=== PATIENT | male | born 2000 | race Caucasian/White ===

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

== ENCOUNTER 2021-04-18 01:22 | Emergency (ER) | payer BC, MEDICAID, SELFPAY ==
[2021-04-18 01:24] VITALS: BP 139/76; PULSE 84; RESP 17; TEMP 36.9; O2SAT 100; BMI 28.0
[2021-04-18 01:48] VITALS: BMI 28.0
--- NOTE | 2021-04-18 01:48 | CT_ITS ---
PROCEDURE INFORMATION: Exam: CT Abdomen And Pelvis With Contrast Exam date and time: 04/18/2021 1:48 AM Age: 21 years old Clinical indication: Nausea and vomiting; Abdominal pain; Generalized; Patient HX: N/v/d for 2 days; Additional info: Abd pain TECHNIQUE: Imaging protocol: Computed tomography of the abdomen and pelvis with contrast. Radiation optimization: All CT scans at this facility use at least one of these dose optimization techniques: automated exposure control; mA and/or kV adjustment per patient size (includes targeted exams where dose is matched to clinical indication); or iterative reconstruction. Contrast material: ISOVUE; Contrast volume: 75 ml; Contrast route: IV; COMPARISON: No relevant prior studies available. FINDINGS: Lungs: The visualized lung bases are unremarkable. Liver: Unremarkable. No intrahepatic biliary dilation. Gallbladder and bile ducts: No gallbladder wall thickening. No radio-opaque stones. No common bile duct dilation. Pancreas: Unremarkable. No main pancreatic duct dilation. Spleen: Spleen is borderline enlarged measuring 12.6 cm in craniocaudal dimension. Adrenal glands: Unremarkable. Kidneys and ureters: Symmetric, homogeneous enhancement of both kidneys. No hydronephrosis. Stomach and bowel: No obstruction. No abnormal bowel wall thickening. Appendix: Appendix is gas-filled and within normal limits. Intraperitoneal space: No pneumoperitoneum. No ascites. Vasculature: No abdominal aortic aneurysm. Lymph nodes: No enlarged lymph nodes. Urinary bladder: Bladder is decompressed, limiting its evaluation. Reproductive: Unremarkable as visualized. Bones/joints: Mild lower lumbar disc bulging and facet degenerative changes. [id number] neural foraminal narrowing is present at the lower lumbar levels. There is also at least mild spinal canal stenosis at L4-L5. No acute fracture. Soft tissues: Small umbilical hernia containing fat. IMPRESSION: 1. No acute abnormality or specific etiology for abdominal pain identified. Ninety. Mild splenomegaly. 2. Borderline splenomegaly.
[2021-04-18 01:55] LABS: Microscopic, Urine URINE MICROSCOPIC (MICROSCOPIC)
[2021-04-18 01:58] LABS: Appearance,Urine CLEAR (Clear); Bilirubin,Urine Negative (Negative); Blood, Urine Negative (Negative); Color,Urine YELLOW (Yellow); Glucose,Urine (UA) Negative (Negative); Ketones,Urine Negative (Negative); Leukocyte Esterase,Urine Negative (Negative); Nitrate,Urine Negative (Negative); Protein,Urine Negative (Negative); Specific Gravity, Urine 1.025 (1.005-1.030); Urobilinogen,Urine 0.2 EU/dl (0.2)
[2021-04-18 02:00] LABS: Basophils # 0.1 K/mm3 (0-0.2); Basophils % 1.1 % (0.1-2.0); Eosinophils # 0.1 K/mm3 (0.0-0.4); Eosinophils % 1.1 % (0.1-12.0); Hematocrit 53.7 % (42.0-52.0); Hemoglobin 17.9 g/dL (14.1-18.0); Lymphocytes # 1.5 K/mm3 (0.7-4.5); Mean Corpuscular HGB Conc 33.3 g/dL (31.8-35.4); Mean Corpuscular Hemoglobin 30.3 pg (27.0-31.2); Mean Platelet Volume 7.8 fl (7.4-10.4); Monocytes # 0.6 K/mm3 (0.1-1.0); Monocytes % 7.6 % (1.7-9.3); Neutrophils # 5.6 K/mm3 (1.8-7.8); Neutrophils % 71.2 % (37.0-80.0); Platelet Count 242 K/mm3 (142-424); Red Cell Distribution Width 13.1 % (11.5-17.5); White Blood Count 7.9 K/mm3 (4.5-13.0)
[2021-04-18 02:06] LABS: Alanine Aminotransferase 36 U/L (12-78); Albumin Level 4.5 g/dl (3.5-5.0); Albumin/Globulin Ratio 1.4 (1.1-1.8); Alkaline Phosphatase 98 U/L (38-126); Amylase 80 U/L (30-110); Anion Gap 15.8 mEq/L (5-15); Aspartate Amino Transferase 80 U/L (17-59); Bilirubin,Total 0.9 mg/dl (0.2-1.3); Blood Urea Nitrogen 13 mg/dl (9-20); Calcium 9.3 mg/dl (8.4-10.2); Carbon Dioxide 26 mmol/L (22.0-30.0); Chloride 104 mmol/L (98-107); Creatinine Clearance Estimated 160 mL/min (50-200); Estimated Glomerular Filt Rate 108 ml/min (>60); GFR (African American) 130 ML/MIN (>60); Globulin 3.3 g/dL (1.3-3.2); Glucose 101 mg/dl (74-100); Lipase 65 U/L (23-300); Potassium 3.8 mmoL/L (3.5-5.1); Sodium 142 mmol/L (136-145); Total Protein,Serum 7.8 g/dl (6.3-8.2)
--- NOTE | 2021-04-18 02:09 | HMH.EDNVD ---
ED Disposition Clinical Impression: Gastroenteritis Disposition: Home, Self-Care Condition on Discharge: Good Instructions: DI for Acute Abdominal Pain Additional Instructions: fluids and see pcp for follow up Referrals: Cullen Bravo [Primary Care Provider] - - Critical Care Critical Care Time: No Attestation: On 04/18/21, the high probability of a clinically significant, sudden or life threatening deterioration of the following system(s) required my full and direct attention, intervention and personal management. The time I documented below is in addition to time spent performing reported procedures but includes the following listed in this critical care notation. Medical Decision Making - Medical Records Medical records reviewed: Yes: I reviewed the patient's medical records. - Prakash Inquiry Pt receiving controlled substance: No Vital Signs: 04/18/21 01:24 Temperature 98.4 F Temperature Source Oral Pulse Rate [Right] 84 Respiratory Rate 17 Blood Pressure [Right Arm] 139/76 Blood Pressure Mean [Right Arm] 97 Blood Pressure Source [Right Arm] Automatic Cuff 02 Sat by Pulse Oximetry 100 Oxygen Delivery Method Room Air - Lab Data Lab results reviewed: Yes: I reviewed the patient's lab results. Lab Results 04/18/21 01:25: Urine Color Yellow, Urine Appearance Clear, Urine pH 6.0, Ur Specific [place] 1.025, Urine Protein Negative, Urine Glucose (UA) Negative, Urine Ketones Negative, Urine Blood Negative, Urine Nitrate Negative, Urine Bilirubin Negative, Urine Urobilinogen 0.2, Ur Leukocyte Esterase Negative, Urine WBC 3-5, Ur Squamous Epith Cells Occasional, Urine Bacteria 1+, Urine Mucus 1+ 04/18/21 01:40: WBC 7.9, RBC 5.90, Hgb 17.9, Hct 53.7 H, MCV 91.0, MCH 30.3, MCHC 33.3, RDW 13.1, Plt Count 242, MPV 7.8, Neut % (Auto) 71.2, Lymph % (Auto) 19.0, [place] % (Auto) 7.6, Eos % (Auto) 1.1, Baso % (Auto) 1.1, Neut # (Auto) 5.6, Lymph # (Auto) 1.5, [place] # (Auto) 0.6, Eos # (Auto) 0.1, Baso # (Auto) 0.1, ESR 4 04/18/21 01:40: Sodium 142, Potassium 3.8, Chloride 104, Carbon Dioxide 26, Anion Gap 15.8 H, BUN 13, Creatinine 0.90, Estimated Creat Clear 160, Estimated GFR 108, Est GFR ( Amer) 130, Glucose 101 H, Calcium 9.3, Total Bilirubin 0.9, AST 80 H, ALT 36, Alkaline Phosphatase 98, C-Reactive Protein 10.1 H, Total Protein 7.8, Albumin 4.5, Globulin 3.3 H, Albumin/Globulin Ratio 1.4, Amylase 80, Procalcitonin 0.168 04/18/21 01:40: Lipase 65 04/18/21 01:40: Lactate 0.7 Result diagrams: 04/18/21 01:40 04/18/21 01:40 Orders (Tests/Meds): ED MEDICATIONS Generic Name Dose Route Start Last Admin Trade Name Freq PRN Reason Stop Dose Admin Sodium Chloride 1,000 mls @ 999 mls/hr 04/18/21 02:00 04/18/21 02:06 Sod Chlor 0.9% 1000ml Bag IV 04/18/21 03:00 999 mls/hr .Q1H1M LILIAM Administration Sodium Chloride 8 ml 04/18/21 01:52 Sodium Chloride 0.9% 10ml Vial IV 05/18/21 01:51 NEEDED PRN dilute pepcid Discontinued Medications Generic Name Dose Route Start Last Admin Trade Name Freq PRN Reason Stop Dose Admin Diphenhydramine HCl 50 mg 04/18/21 03:02 04/18/21 03:10 Diphenhydramine 50mg/Ml Vial IV 04/18/21 03:03 50 mg ONCE ONE Administration Famotidine 20 mg 04/18/21 01:52 04/18/21 02:05 Famotidine 20mg/2ml Vial IV 04/18/21 01:53 20 mg ONCE ONE Administration Iopamidol 75 ml 04/18/21 02:12 04/18/21 02:12 Iopamidol-370 (76%);100ml Bottle IV 04/18/21 02:13 75 ml ONCE ONE Administration Ketorolac Tromethamine 30 mg 04/18/21 01:52 04/18/21 02:05 Ketorolac 30mg/Ml Vial IV 04/18/21 01:53 30 mg ONCE ONE Administration Methylprednisolone Sodium Succinate 125 mg 04/18/21 03:02 04/18/21 03:10 Methylprednisolone Sod Succ 125mg Vial IV 04/18/21 03:03 125 mg ONCE ONE Administration Metoclopramide HCl 10 mg 04/18/21 01:52 04/18/21 02:05 Metoclopramide Hcl 10mg/2ml Vial IVP 04/18/21 01:53 10 mg ONCE ONE Administration
[2021-04-18 02:11] LABS: C-Reactive Protein 10.1 mg/L (0-4)
[2021-04-18 02:14] LABS: Bacteria,Urine 1+ /lpf; Mucus,Urine 1+ /lpf; Squamous Epithelial Cell,Urine Occasional #/hpf (0-5)
--- NOTE | 2021-04-18 02:18 | PC.NURSE ---
pt attempting to give diarrhea sample
[2021-04-18 02:25] LABS: Procalcitonin 0.168 ng/mL (0.0-2.0)
[2021-04-18 02:27] LABS: Lactic Acid 0.7 mmol/L (0.7-2.1)
[2021-04-18 02:43] LABS: Erythrocyte Sedimentation Rate 4 mm/hr (0-15)
[2021-04-18 03:56] VITALS: BP 122/70; PULSE 76; RESP 15; TEMP 36.8; O2SAT 99
== END 2021-04-18 04:00 | disposition home or self-care (01) ==
PROVIDERS: Emergency Provider Emergency Medicine; PCP Internal Medicine
DX: K52.9 Noninfective gastroenteritis and colitis, unspecified (principal)
CPT/HCPCS: 74177; 80053; 81001; 82150; 83605; 83690; 84145; 85025; 85651; 86140; 96365; 96366; 96375; 99283; J2405; Q9967

== ENCOUNTER 2021-06-14 00:18 | Emergency (ER) | payer BC, MEDICAID, SELFPAY ==
[2021-06-14 00:19] VITALS: BP 115/81; PULSE 90; RESP 16; TEMP 36.8; O2SAT 98; BMI 28.8
--- NOTE | 2021-06-14 00:31 | XR_ITS ---
PROCEDURE INFORMATION: Exam: XR Right Tibia and Fibula Exam date and time: 06/14/2021 12:31 AM Age: 21 years old Clinical indication: Lower leg; Patient HX: PT states he slid across the floor and hit a door frame tonight. C/O distal right tib/fib pain; Additional info: Injury TECHNIQUE: Imaging protocol: XR Right tibia and fibula. Views: 2 views. COMPARISON: No relevant prior studies available. FINDINGS: Bones/joints: No acute displaced fracture. No dislocation. Soft tissues: Normal. IMPRESSION: No acute findings.
--- NOTE | 2021-06-14 02:06 | HMH.EDLOEX ---
ED Disposition Clinical Impression: Contusion of lower leg Qualifiers: Encounter type: initial encounter Laterality: right Qualified Code(s): S80.11XA - Contusion of right lower leg, initial encounter Disposition: Home, Self-Care Condition on Discharge: Good Instructions: DI for Leg Pain Additional Instructions: ice and advil/tyenol and see pcp for follow up Referrals: Cullen Bravo [Primary Care Provider] - - Critical Care Critical Care Time: No Attestation: On 06/14/21, the high probability of a clinically significant, sudden or life threatening deterioration of the following system(s) required my full and direct attention, intervention and personal management. The time I documented below is in addition to time spent performing reported procedures but includes the following listed in this critical care notation. Medical Decision Making - Medical Records Medical records reviewed: Yes: I reviewed the patient's medical records. - Prakash Inquiry Pt receiving controlled substance: No Vital Signs: 06/14/21 00:19 Temperature 98.2 F Temperature Source Oral Pulse Rate [Right Radial] 90 Respiratory Rate 16 Blood Pressure [Left Arm] 115/81 Blood Pressure Mean [Left Arm] 92 Blood Pressure Source [Left Arm] Automatic Cuff Blood Pressure Position [Left Arm] Sitting 02 Sat by Pulse Oximetry 98 Oxygen Delivery Method Room Air Orders (Tests/Meds): ED MEDICATIONS Discontinued Medications Generic Name Dose Route Start Last Admin Trade Name Freq PRN Reason Stop Dose Admin Acetaminophen 1,000 mg 06/14/21 00:32 06/14/21 00:34 Acetaminophen 500mg Tab PO 06/14/21 00:33 1,000 mg ONCE ONE Administration Ibuprofen 600 mg 06/14/21 00:32 06/14/21 00:34 Ibuprofen 600 Mg Tablet PO 06/14/21 00:33 600 mg ONCE ONE Administration - Radiology Data #1 Image(s): Tib/Fib Image Reviewed: Yes I have reviewed radiologist's interpretation Preliminary Findings: No Fracture Seen Medical Decision Narrative: has tenderness but neg xrays and has no clinical evid of compartment syndrome Lower Extremity Injury HPI - General Chief Complaint: Extremity Injury, Lower Stated Complaint: AO 06/14/21 0015 Right leg injury Time Seen by Provider: 06/14/21 01:00 Mode of Arrival: Wheelchair Source of Information: Patient, Medical Record Limitations: No Limitations Description of Symptoms (Recalled from ER Triage Doc. by RN): Pt reports sliding into a door frame and injuring his right louis. He says he was able to bear weight on it after the injury but it has gotten worse. No obvious deformity present. + distal pulse with good cap refill. - History of Present Illness HPI Narrative: acute injury rt lower leg MD complaint: leg injury Onset (ago): hour(s) Type of Injury: blunt Place: home Severity: moderate - Related Data Home Medications Medication Instructions Recorded Confirmed No Known Home Medications 06/14/21 06/14/21 Allergies Allergy/AdvReac Type Severity Reaction Status Date / Time azithromycin Allergy Rash Verified 04/18/21 02:18 ceftibuten [From Cedax] Allergy Rash Verified 04/18/21 02:18 [facility] History - Hepatitis A Screen Drug use history?: No High risk sexual behaviors?: No History of sexually transmitted infection?: No Currently employed?: No Childcare worker?: No Do you have indoor plumbing?: Yes Do you have electricity?: Yes Attestation statement:: This patient has been screened for Hepatitis A risk factors. I have reviewed the patient's past medical history: Yes Medical History: Denies:: Cancer, Diabetes Mellitus Type 1, Diabetes Mellitus Type 2, MRSA Laterality Cases: Bilateral: Tonsillectomy Amputation: No Fractures: No - Social History Smoking Status: Never smoker Alcohol Intake: never Occupational Status: other ROS Obtained: Yes All systems reviewed & no additional complaints - Constitutional Constitutional: Denies fever(s) - Eyes
[2021-06-14 02:16] VITALS: BP 124/63; PULSE 78; RESP 16; TEMP 36.6; O2SAT 98
== END 2021-06-14 02:27 | disposition home or self-care (01) ==
PROVIDERS: Emergency Provider Emergency Medicine; PCP Internal Medicine
DX: S80.11XA Contusion of right lower leg, initial encounter (principal); W01.0XXA Fall on same level from slipping, tripping and stumbling without subsequent striking against object, initial encounter; Y92.89 Other specified places as the place of occurrence of the external cause
CPT/HCPCS: 73590; 99282

== ENCOUNTER 2022-04-26 18:30 | Emergency (ER) | payer BC, MEDICAID, SELFPAY ==
[2022-04-26 19:26] VITALS: BP 135/84; PULSE 99; RESP 16; TEMP 38.8; O2SAT 97; BMI 33.2
--- NOTE | 2022-04-26 19:30 | EXP.UTC ---
Discharge Plan Disposition Patient Disposition: Home, Self-Care Condition: Good Prescriptions Prescriptions: New oseltamivir [Tamiflu] 75 mg capsule 75 mg PO BID Qty: 10 0RF Referrals Follow up/Referrals: Cullen Bravo [Primary Care Provider] - See instructions Activity Restrictions/Add. Instructions Additional Instructions/Restrictions: Rest, fluids, Tylenol/Motrin as needed Clinical Impressions Clinical Impression: Influenza A Instructions Patient Instructions: DI for Influenza -- Adult Discharge ED Provider: Tashia Buchanan [facility] [place] HPI General Stated complaint: cough, congestion, body aches, weakness, h/a Mode of Arrival: Ambulatory Source of Information: Patient Limitations: No Limitations Time Seen by Provider: 04/26/22 19:36 Description of Symptoms (Recalled from Triage Doc. by RN): pt comes in with c/o cough, congestion, fatigue, cough, weakness, body aches. symptoms began 2 days HEENT Symptoms (Recalled from RN notes): Yes Resp Symptoms (Recalled from RN notes): Yes Skin Symptoms (Recalled from RN notes): No MS Symptoms (Recalled from RN notes): No Functional Status (Recalled from RN notes): n/a History of Present Illness Provider Complaint: Cough, congestion, headache, sore throat, body aches, chills since last night. Onset (ago): day(s) (1) Relieving factors: none Exacerbating factors: none Associated symptoms: cough, fever/chills and headaches Treatments prior to arrival: NSAID Related Data Previous Rx's Medication Instructions Recorded oseltamivir 75 mg capsule (Tamiflu) 75 mg PO BID #10 caps 04/26/22 Allergies Allergy/AdvReac Type Severity Reaction Status Date / Time azithromycin Allergy Rash Verified 04/26/22 19:28 ceftibuten [From Cedax] Allergy Rash Verified 04/26/22 19:28 Worker's Comp Is this a Worker's Comp case?: No [facility] Social History Smoking Status: Never smoker alcohol intake: never current occupational status: other Travel in the last 8 weeks: None ROS Obtained: Yes All systems reviewed & no additional complaints except as documented Constitutional Constitutional: Reports body ache, Reports chills, Reports fatigue, Reports fever(s) and Reports headache(s) ENT Ears, Nose, Mouth, and Throat: Reports headache(s) and Reports sore throat Respiratory Respiratory: Reports cough Neurologic Neurologic: Reports headache(s) Endocrine Endocrine: Reports fatigue Physical Exam General General appearance: alert and in no apparent distress Head Head exam: atraumatic, normocephalic and normal inspection Eye Eye exam: Present normal appearance, PERRL and EOMI ENT ENT exam: Present normal exam, normal oropharynx, mucous membranes moist, TM's normal bilaterally and normal external ear exam Neck Neck exam: Present normal inspection, full ROM and trachea midline; Absent meningismus or lymphadenopathy Chest Chest inspection: Present normal inspection and symmetric chest wall rise; Absent tenderness Respiratory Respiratory exam: Present normal lung sounds bilaterally; Absent respiratory distress Cardiovascular Cardiovascular exam: Present regular rate and normal rhythm; Absent JVD Abdominal Exam Abdominal exam: Present soft and normal bowel sounds; Absent distention, tenderness or guarding Extremities Exam Extremities exam: Present normal inspection, full ROM and normal capillary refill; Absent calf tenderness Back Exam Back exam: Present normal inspection; Absent tenderness Neurological Exam Neurological exam: Present alert and oriented X3 Psychiatric Psychiatric exam: Present normal affect and normal mood Skin Skin exam: Present warm, dry, intact and normal color Lymphatic Lymphatic Findings: no adenopathy Medical Decision Making Prakash Inquiry Pt receiving controlled substance: No Vital Signs: 04/26/22 19:26 Temperature 101.9 F H Temperature Source Oral Pulse Rate [Left Radial] 99 H Resp
[2022-04-26 19:33] LABS: UTC Influenza A Antigen Positive (Negative); UTC Influenza B Antigen Negative (Negative)
[2022-04-26 19:42] VITALS: BP 135/84; PULSE 90; RESP 16; TEMP 37.6
== END 2022-04-26 19:47 | disposition home or self-care (01) ==
PROVIDERS: Emergency Provider Physician Assistant; PCP Internal Medicine
DX: J10.1 Influenza due to other identified influenza virus with other respiratory manifestations (principal)
CPT/HCPCS: 87804; 99212; G0463

== ENCOUNTER 2022-06-23 04:28 | Emergency (ER) | payer MEDICAID, SELFPAY ==
[2022-06-23 04:30] VITALS: BP 117/58; PULSE 96; RESP 18; TEMP 37.3; O2SAT 98; BMI 33.6
[2022-06-23 05:21] LABS: Coronavirus 19, PCR Not Detected (NotDetected); Influenza A, PCR Not Detected (NotDetected); Influenza B, PCR Not Detected (NotDetected)
--- NOTE | 2022-06-23 05:28 | HMH.EDGENADL ---
Discharge Plan Disposition Patient Disposition: Home, Self-Care Condition: Good Chief Complaint: Nausea/Vomiting/Diarrhea Prescriptions Prescriptions: No Action oseltamivir [Tamiflu] 75 mg capsule 75 mg PO BID Qty: 10 0RF Referrals Follow up/Referrals: Cullen Bravo [Primary Care Provider] - See instructions Clinical Impressions Clinical Impression: Gastroenteritis Instructions Patient Instructions: DI for Diarrhea and Traveler's Diarrhea -- Adult, DI for Nausea -- Adult Discharge ED Provider: Dudley Cox Adult HPI General Chief complaint: Nausea/Vomiting/Diarrhea Stated complaint: V/D,weakness Time Seen by Provider: 06/23/22 04:33 Mode of Arrival: Wheelchair Source of Information: Patient Limitations: No Limitations Description of Symptoms (Recalled from ER Triage Doc. by RN): pt C/O N/V/D pt states he started throwing up and having diarrhea at 1230 a and that he is weak and dehyrated. no pain reported the pt stated that the flu, covid and the stomach bug are going around him place of employment History of Present Illness HPI narrative: 22yo M without significant past medical history presents to the emergency department secondary to nausea with vomiting and diarrhea that began shortly after midnight. Reports multiple sick contacts at work with flu, COVID, a stomach bug. No fever. Intolerant to p.o. intake. Related Data Previous Rx's Medication Instructions Recorded oseltamivir 75 mg capsule (Tamiflu) 75 mg PO BID #10 caps 04/26/22 Allergies Allergy/AdvReac Type Severity Reaction Status Date / Time azithromycin Allergy Rash Verified 04/26/22 19:28 ceftibuten [From Cedax] Allergy Rash Verified 04/26/22 19:28 [facility] Disclaimer: The information contained in this section may have been updated after the patient was seen, as this information can be updated by other users. Social History Smoking Status: Never smoker alcohol intake: never current occupational status: other Travel in the last 8 weeks: None ROS Obtained: Yes Systems reviewed as appropriate & no additional complaints except as documented Physical Exam General General appearance: alert and in no apparent distress Head Head exam: atraumatic Neck Neck exam: Present normal inspection and trachea midline Chest Chest inspection: Present normal inspection and symmetric chest wall rise Respiratory Respiratory exam: Present normal lung sounds bilaterally; Absent respiratory distress or accessory muscle use Cardiovascular Cardiovascular exam: Present regular rate, normal rhythm and normal heart sounds Abdominal Exam Abdominal exam: Present soft and normal bowel sounds; Absent distention, tenderness, guarding or rebound Neurological Exam Neurological exam: Present alert, oriented X3 and CN II-XII intact Psychiatric Psychiatric exam: Present normal affect and normal mood Skin Skin exam: Present warm, dry and intact Medical Decision Making Medical Records Medical records reviewed: Yes I reviewed the patient's medical records. Prakash Inquiry Pt receiving controlled substance: No Prakash was queried for this patient: No Vital Signs: 06/23/22 04:30 Temperature 99.1 F Temperature Source Oral Pulse Rate [Left] 96 H Respiratory Rate 18 Blood Pressure [Right Arm] 117/58 L Blood Pressure Mean [Right Arm] 77 02 Sat by Pulse Oximetry 98 Oxygen Delivery Method Room Air Lab Data Lab results reviewed: Yes I reviewed the patient's lab results. Lab Results 06/23/22 05:13: SARS-CoV-2 (PCR) Not detected, Influenza A Untype (PCR) Not detected, Influenza Type B (PCR) Not detected 06/23/22 06:15: WBC 10.8, RBC 5.10, Hgb 15.1, Hct 45.2, MCV 88.5, MCH 29.6, MCHC 33.5, RDW 13.1, Plt Count 249, MPV 7.6, Neut % (Auto) 92.2 H, Lymph % (Auto) 3.0 L, [place] % (Auto) 3.7, Eos % (Auto) 0.8, Baso % (Auto) 0.4, Neut # (Auto) 10.0 H, Lymph # (Auto) 0.3 L, [place] # (Auto) 0.4, Eos #
[2022-06-23 06:21] LABS: Basophils % 0.4 % (0.1-2.0); Eosinophils # 0.1 K/mm3 (0.0-0.4); Eosinophils % 0.8 % (0.1-12.0); Hematocrit 45.2 % (42.0-52.0); Hemoglobin 15.1 g/dL (14.1-18.0); Lymphocytes # 0.3 K/mm3 (0.7-4.5); Mean Corpuscular HGB Conc 33.5 g/dL (31.8-35.4); Mean Corpuscular Hemoglobin 29.6 pg (27.0-31.2); Mean Corpuscular Volume 88.5 fl (80-94); Mean Platelet Volume 7.6 fl (7.4-10.4); Monocytes # 0.4 K/mm3 (0.1-1.0); Monocytes % 3.7 % (1.7-9.3); Neutrophils % 92.2 % (37.0-80.0); Platelet Count 249 K/mm3 (142-424); Red Cell Distribution Width 13.1 % (11.5-17.5); White Blood Count 10.8 K/mm3 (4.8-10.8)
[2022-06-23 06:23] LABS: MANUAL DIFFERENTIAL MANUAL DIFFERENTIAL (MANUAL DIFF)
[2022-06-23 06:30] LABS: Anion Gap 12.8 mEq/L (5-15); Blood Urea Nitrogen 21 mg/dl (9-20); Calcium 8.4 mg/dl (8.4-10.2); Carbon Dioxide 25 mmol/L (22.0-30.0); Chloride 107 mmol/L (98-107); Creatinine Clearance Estimated 147 mL/min (50-200); Estimated Glomerular Filt Rate 85 ml/min (>60); GFR (African American) 102 ML/MIN (>60); Glucose 154 mg/dl (74-100); Lipase 47 U/L (23-300); Lymphocytes % 5 % (10-50); Neutrophils % 83 % (42-76); Platelet Estimate Normal; Potassium 3.8 mmoL/L (3.5-5.1); RBC Morphology Normal; Sodium 141 mmol/L (136-145); Total Cells Counted 100
[2022-06-23 06:55] VITALS: BP 107/56; PULSE 89; RESP 16; TEMP 36.8; O2SAT 98
== END 2022-06-23 07:00 | disposition home or self-care (01) ==
PROVIDERS: Emergency Provider Family Medicine; PCP Internal Medicine
DX: R53.1 Weakness (principal); K52.9 Noninfective gastroenteritis and colitis, unspecified; Z20.822 Contact with and (suspected) exposure to COVID-19
CPT/HCPCS: 80048; 83690; 85007; 85025; 96361; 96374; 96375; 99285; C9803; U0003; U0005

== ENCOUNTER 2022-07-02 08:37 | Emergency (ER) | payer MEDICAID, SELFPAY ==
[2022-07-02 08:38] VITALS: BP 132/82; PULSE 103; RESP 19; TEMP 37.7; O2SAT 97; BMI 32.8
--- NOTE | 2022-07-02 09:02 | EXP.UTC ---
Discharge Plan Disposition Patient Disposition: Home, Self-Care Condition: Good Prescriptions Prescriptions: New lxdyhyhihquaxjd-kqnucwwew-YC [Bromfed DM] 2-30-10 mg/5 mL Syrup 5 ml PO Q6H PRN (Reason: Cough) Qty: 240 0RF Referrals Follow up/Referrals: Cullen Bravo [Primary Care Provider] - See instructions Activity Restrictions/Add. Instructions Additional Instructions/Restrictions: Drink plenty of fluids. Take tylenol or ibuprofen for pain or fever. Follow up with your regular doctor. GO TO THE ER FOR ANY WORSENING SYMPTOMS Clinical Impressions Clinical Impression: Viral pharyngitis Stand Alone Forms Stand Alone Forms: Work/School Release Instructions Patient Instructions: Viral Pharyngitis, DI for Viral Pharyngitis Discharge ED Provider: Joe Buckner [facility] [place] HPI General Stated complaint: Sore throat, bodyaches, headache, drainage Time Seen by Provider: 07/02/22 09:02 History of Present Illness Provider Complaint: He states that since last night, he has had a sore throat, malaise, and chills. He states that he feels like he has strep throat. He had his tonsils out several years ago and he has not had strep throat since then. Related Data Previous Rx's Medication Instructions Recorded skefqmrkudljrrf-fjabwuavnzxytax-BL 5 ml PO Q6H PRN Cough #240 mL 07/02/22 2 mg-30 mg-10 mg/5 mL oral syrup (Bromfed DM) Allergies Allergy/AdvReac Type Severity Reaction Status Date / Time azithromycin Allergy Rash Verified 07/02/22 09:04 ceftibuten [From Cedax] Allergy Rash Verified 07/02/22 09:04 [facility] Disclaimer: The information contained in this section may have been updated after the patient was seen, as this information can be updated by other users. Social History Smoking Status: Never smoker alcohol intake: never current occupational status: other Travel in the last 8 weeks: None ROS Obtained: Yes All systems reviewed & no additional complaints except as documented Constitutional Constitutional: Reports chills and Reports fever(s) Eyes Eyes: Denies eye discharge ENT Ears, Nose, Mouth, and Throat: Reports as per HPI Cardiovascular Cardiovascular: Denies chest pain Respiratory Respiratory: Denies chest congestion and Reports cough Gastrointestinal Gastrointestingal: Reports nausea; Denies abdominal pain, constipation, cramping, diarrhea or vomiting Musculoskeletal Musculoskeletal: Denies arthralgias Integumentary/Breasts Skin/Breast: Denies rash Neurologic Neurologic: Denies paresthesias Physical Exam General General appearance: alert and in no apparent distress Head Head exam: atraumatic, normocephalic and normal inspection Eye Eye exam: Present normal appearance, PERRL and EOMI ENT ENT exam: Present mucous membranes moist and normal external ear exam Expanded ENT Exam TM/Canal exam: Bilateral TM: erythema and bulging Nose exam: Absent sinus tenderness Mouth exam: Present normal external inspection; Absent drooling Teeth exam: Present normal inspection Throat exam: Present tonsillar erythema, tonsillomegaly and tonsillar exudate Neck Neck exam: Present normal inspection, full ROM and trachea midline; Absent tenderness, meningismus or lymphadenopathy Chest Chest inspection: Present normal inspection and symmetric chest wall rise; Absent tenderness Respiratory Respiratory exam: Present normal lung sounds bilaterally; Absent respiratory distress, wheezes or stridor Cardiovascular Cardiovascular exam: Present regular rate and normal rhythm; Absent systolic murmur or diastolic murmur Abdominal Exam Abdominal exam: Present soft and normal bowel sounds; Absent distention, tenderness, guarding, rebound or rigidity Extremities Exam Extremities exam: Present normal inspection and normal capillary refill; Absent calf tenderness Back Exam Back exam: Present normal inspection and full ROM; Absent tenderness, CVA tendern
[2022-07-02 09:06] LABS: UTC Strep Screen (Rapid) Negative (Negative)
[2022-07-02 09:20] VITALS: BP 132/82; PULSE 103; RESP 19; TEMP 37.7; O2SAT 97
== END 2022-07-02 09:20 | disposition home or self-care (01) ==
PROVIDERS: Emergency Provider Nurse Practitioner Family; PCP Internal Medicine
DX: J02.9 Acute pharyngitis, unspecified (principal); R52 Pain, unspecified; R09.89 Other specified symptoms and signs involving the circulatory and respiratory systems
CPT/HCPCS: 87880; 99212; 99213; C9803; G0463; U0003; U0005

== ENCOUNTER 2024-01-20 03:48 | Emergency (ER) | payer MEDICAID, SELFPAY ==
[2024-01-20 03:55] VITALS: BP 149/105; PULSE 81; RESP 16; TEMP 36.9; O2SAT 98; BMI 34.9
--- NOTE | 2024-01-20 03:59 | ECG_ITS ---
APPROVED REPORT Exam: Resting ECG HR:73 bpm ECG Measurements Heart Rate 73 AXES VT 154 P 31 QRSd 94 QRS 20 QT 355 T 18 QTc 381 Conclusion SINUS RHYTHM WITH SINUS ARRHYTHMIA NORMAL ECG UNCONFIRMED REPORT Electronically signed by : CARLYN HESS, 01/23/2024 06:47:44
--- NOTE | 2024-01-20 04:02 | HMH.EDGENADL ---
Discharge Plan Disposition Patient Disposition: Home, Self-Care Chief Complaint: Anxiety Prescriptions Prescriptions: No Action awcezlqwhpvnzxv-awgjebimp-CP [Bromfed DM] 2-30-10 mg/5 mL Syrup 5 ml PO Q6H PRN (Reason: Cough) Qty: 240 0RF Referrals Follow up/Referrals: Provider,Referral, [Primary Care Provider] - See instructions Clinical Impressions Clinical Impression: Heart palpitations Print Language Print Language: Thai Discharge ED Provider: Valentin Del Cid General Adult HPI General Chief complaint: Anxiety Stated complaint: panic attack Time Seen by Provider: 01/20/24 03:52 Mode of Arrival: Ambulatory Source of Information: Patient Limitations: No Limitations Description of Symptoms (Recalled from ER Triage Doc. by RN): Pt ambulated to ED with cc of heart racing. Pt states I felt my heart start to race and it caused me to panic Pt states becoming nauseated and shaky. Pt states he believes it is a panic attack but wanted to be checked out just incase History of Present Illness HPI narrative: 21-year-old male with history of asthma presents for multiple episodes of tachycardia palpitations and anxiety. He reports he is not sure what happened, could be anxiety related though he has no history of anxiety panic disorder and has had nothing to cause any anxiety recently. He reports he had an episode happened yesterday lasting about 5 minutes, had an episode happened shortly prior to arrival as well. He reports that he measured his heart rate by feeling his pulse and it was higher than 120 all of a sudden while laying down. Nothing brought it on, it spontaneously resolved. Nothing like this has happened before. Denies any chest pain abdominal pain or any other symptoms at this time. Related Data Previous Rx's ?Medication ?Instructions ?Recorded ubkldwqrvahjchx-mjqhgovdofjtyqq-RK 5 ml PO Q6H PRN Cough #240 mL 07/02/22 2 mg-30 mg-10 mg/5 mL oral syrup (Bromfed DM) Allergies Allergy/AdvReac Type Severity Reaction Status Date / Time azithromycin Allergy Rash Verified 07/02/22 09:04 ceftibuten [From Cedax] Allergy Rash Verified 07/02/22 09:04 [facility] Disclaimer: The information contained in this section may have been updated after the patient was seen, as this information can be updated by other users. Social History Smoking Status: Never smoker alcohol intake: never current occupational status: other Travel in the last 8 weeks: None ROS Obtained: Yes All systems reviewed & no additional complaints except as documented Physical Exam General General appearance: alert and in no apparent distress Head Head exam: atraumatic and normocephalic Eye Eye exam: Present normal appearance, PERRL and EOMI ENT ENT exam: Present normal oropharynx and normal external ear exam Neck Neck exam: Present normal inspection and full ROM Chest Chest inspection: Present normal inspection and symmetric chest wall rise; Absent tenderness Respiratory Respiratory exam: Present normal lung sounds bilaterally; Absent respiratory distress Cardiovascular Cardiovascular exam: Present regular rate and normal rhythm Abdominal Exam Abdominal exam: Present soft; Absent distention, tenderness or guarding Extremities Exam Extremities exam: Present normal inspection; Absent edema or joint swelling Back Exam Back exam: Present normal inspection; Absent tenderness Neurological Exam Neurological exam: Present alert and oriented X3; Absent motor sensory deficit Psychiatric Psychiatric exam: Present normal affect and normal mood Skin Skin exam: Present warm, dry and normal color Lymphatic Lymphatic Findings: no adenopathy Medical Decision Making Medical Records Medical records reviewed: Yes I reviewed the patient's medical records. Prakash Inquiry Pt receiving controlled substance: No Prakash was queried for this patient: No Vital Signs: 01/20/24 03:55 Temperature 98.5 F Temperature Source Oral Pulse Rate [Left Radial] 81 Respiratory Rate 16 Blood Pressure [Right Arm] 149/105 H Blood Pressure Mean [Right Arm] 119 Blood Pressure Source [Right Arm] Automatic Cuff 02 Sat by Pulse Oximetry 98 Oxygen Delivery Method Room Air Lab Data Lab results reviewed: Yes I reviewed the patient's lab results. Orders (Tests/Meds): ORDERS Category Date Time Status Holter Monitor Req by Jean Paul/ Stat Y 01/20/24 04:01 Ordered ECG Data Tracing #1: I reviewed this ECG and interpreted as documented below: ECG initial impression date: 01/20/24 ECG initial impression time: 04:00 ECG normal with no acute: arrhythmias, ischemia, conduction abnormalities, chamber hypertrophy Normal Sinus Rhythm: Yes Medical Decision Narrative: 23-year-old male with history of asthma presents with multiple episodes of tachycardia at home over the last couple of days. History was obtained via interactive discussion with patient. On arrival, patient is [afebrile, hemodynamically stable, satting appropriately, alert, oriented x4, GCS 15], moving all extremities spontaneously. Full physical exam performed and significant for clear lungs bilaterally without evidence of asthma attack, regular rhythm. Differential includes but is not limited to arrhythmia, palpitations, anxiety/panic disorder. Bedside EKG was obtained and was unremarkable. Labs and chest x-ray were considered, but deemed unnecessary due to low clinical utility. Patient presentation seems most consistent with anxiety, though patient has no history of anxiety/panic disorder and has had no recent inciting factors. Given this, and the patient's reported tachycardia during the episodes, we will place a Holter monitor for further evaluation. Patient discharged in stable condition after Holter monitor was placed. Procedures Risk/Benefits of Procedure(s) Were Explained: Yes Critical Care Critical Care Time Critical Care Time: No
--- NOTE | 2024-01-20 04:22 | PC.NURSE ---
RT at bedside
[2024-01-20 04:31] VITALS: BP 127/95; PULSE 77; RESP 16; TEMP 36.9; O2SAT 97
== END 2024-01-20 04:36 | disposition home or self-care (01) ==
PROVIDERS: Emergency Provider Emergency Medicine
DX: R00.2 Palpitations (principal)
CPT/HCPCS: 93005; 93225; 93226; 99283

== ENCOUNTER 2024-01-26 11:25 | Outpatient (CLI) | payer MEDICAID, SELFPAY ==
[2024-01-26 11:48] LABS: Basophils # 0.1 K/mm3 (0-0.2); Basophils % 1.5 % (0.1-2.0); Eosinophils # 0.1 K/mm3 (0.0-0.4); Eosinophils % 2.1 % (0.1-12.0); Hematocrit 47.6 % (42.0-52.0); Hemoglobin 16.1 g/dL (14.1-18.0); Lymphocytes % 33.8 % (10-50); Mean Corpuscular HGB Conc 33.8 g/dL (31.8-35.4); Mean Corpuscular Hemoglobin 30.4 pg (27.0-31.2); Mean Corpuscular Volume 90.1 fl (80-94); Mean Platelet Volume 8.4 fl (7.4-10.4); Monocytes # 0.4 K/mm3 (0.1-1.0); Monocytes % 6.1 % (1.7-9.3); Neutrophils # 3.3 K/mm3 (1.8-7.8); Neutrophils % 56.5 % (37.0-80.0); Platelet Count 258 K/mm3 (142-424); Red Blood Count 5.29 M/mm3 (4.60-6.20); Red Cell Distribution Width 13.4 % (11.5-17.5); White Blood Count 5.9 K/mm3 (4.8-10.8)
[2024-01-26 12:09] LABS: Albumin Level 4.3 g/dl (3.5-5.0)
[2024-01-26 12:10] LABS: Chloride 110 mmol/L (98-107); Potassium 4.1 mmoL/L (3.5-5.1); Sodium 142 mmol/L (136-145)
[2024-01-26 12:12] LABS: Bilirubin,Unconjugated 0.8 mg/dL (0.0-1.1); Blood Urea Nitrogen 17 mg/dl (9-20); Estimated Glomerular Filt Rate 93 ml/min (>60); GFR (African American) 113 ML/MIN (>60)
[2024-01-26 12:13] LABS: Alanine Aminotransferase 47 U/L (12-78); Alkaline Phosphatase 66 U/L (38-126); Anion Gap 13.1 mEq/L (5-15); Aspartate Amino Transferase 59 U/L (17-59); Bilirubin,Indirect 0.7 mg/dL (0.0-0.9); Bilirubin,Total 0.7 mg/dl (0.2-1.3); Calcium 9.1 mg/dl (8.4-10.2); Carbon Dioxide 23 mmol/L (22.0-30.0); Chol/HDL Ratio 4.4 (1-3.5); Cholesterol 174 mg/dl (140-200); Glucose 98 mg/dl (74-100); HDL Cholesterol 40 mg/dl (40-60); Total Protein,Serum 6.9 g/dl (6.3-8.2); Triglycerides 76 mg/dl (30-150); VLDL Cholesterol 15 mg/dL (0-40)
[2024-01-26 12:24] LABS: Direct LDL Cholesterol 104.99 mg/dL (100-129)
[2024-01-26 12:29] LABS: Free T4 (Free Thyroxine) 1.23 ng/dl (0.78-2.19)
[2024-01-26 12:44] LABS: Thyroid Stimulating Hormone 0.76 uIU/mL (0.465-4.68)
== END 2024-01-26 23:59 | disposition home or self-care (01) ==
LOC: LAB 11:26
PROVIDERS: PCP Internal Medicine; Visit Provider Physician Assistant
DX: R00.2 Palpitations (principal); I20.89 Other forms of angina pectoris; Z82.49 Family history of ischemic heart disease and other diseases of the circulatory system
CPT/HCPCS: 36415; 80048; 80061; 80076; 84439; 84443; 85025; 93270

== ENCOUNTER 2024-01-27 07:42 | Outpatient (CLI) | payer MEDICAID, SELFPAY ==
--- NOTE | 2024-01-27 07:42 | CA_ITS ---
APPROVED REPORT EXAM: Comprehensive 2D, Doppler, and color-flow Echocardiogram Medical Claims Analyst: Mellissa Dunbar RT(R) Ht: 5 ft 7 in Wt: 218lbs BSA: 2.10 BP: 130/86 mmHg Indications: palpitations, CP, family history of HD, asthma 2D Dimensions Left Atrium 3.43 cm M: 3.0 - 4.0 LVEF (Gill's) 50.70 % M: 52 - 72 LVOT 2.01 cm (M/F) 1.5-2.5 LV Volume 98.40 mL M: 62 - 150 LV Volume Index 46.9 mL/m2 M: 34 - 74 LA Volume 22.40 mL LA Volume Index 10.67 mL/m2 (M/F) 16-34 EF AP4 60.90 % EF AP2 41.6 % EF BP 50.7 % GL Strain -19.1 % M-Mode Dimensions RVDd 2.33 cm (0.9-2.6) LVDd 5.38 cm (3.5-5.7) Ao Diam 2.95 cm (2.0-3.7) LVDs 3.98 cm (3.5-5.7) IVSd 0.88 cm (0.6-1.1) PWd 0.68 cm (0.6-1.1) EF (Teich) 50.60% FS 26.00% EDV (Teich) 140.10 mL ESV (Teich) 69.20 mL LV Diastology E Decel Time 150 (160-240 msec) E/A Ratio 1.7 MED E' 10.1 (>= 7 cm/sec) E'/MED E' Ratio 8.50 (<= 14) LAT E' 12.9 (>= 10 cm/sec) E/LAT E' Ratio 6.66 (<= 14) Mitral Valve MV E Max Rony. 86.0 (40-130 cm/s) MV A Velocity 52.0 (40-130 cm/s) E/A Ratio 1.65 MV Decel. Time 150 (160-240 ms) Left Ventricle The left ventricle is normal size. The left ventricular systolic function is low-normal. There is normal left ventricular wall thickness. There is normal LV segmental wall motion. The left ventricular diastolic function is normal. LVEF is 50%. Right Ventricle Right ventricle is mildly dilated. The right ventricular systolic function is normal. Atria The left atrium size is normal. The right atrium size is normal. There there is indeterminate Doppler evidence of interatrial shunt. Aortic Valve Aortic valve opens well. There is no aortic valvular stenosis. No aortic regurgitation is present. Mitral Valve The mitral valve is normal in structure. No evidence of mitral valve stenosis. Mild mitral regurgitation. Tricuspid Valve The tricuspid valve leaflets are thin and pliable. Trace tricuspid regurgitation. There is insufficient regurgitant estimate RVSP. Pulmonic Valve The pulmonary valve is normal in structure. Trace pulmonic regurgitation. Great Vessels The aortic root is normal in size. The ascending aorta is normal in size. The IVC is not well-visualized. Pericardium There is no pericardial effusion. Other Information Study Quality: Fair Conclusion Low normal LV systolic function (LVEF 50%). Mild RV dilation with normal RV function. Mild MR. There there is indeterminate Doppler evidence of interatrial shunt. In the setting of RV dilation and indeterminant color Doppler for interatrial shunt, further evaluation with limited TTE plus agitated saline administration (bubble study) is suggested. Cardiac MRI (cardiomyopathy protocol) is also recommended to evaluate for RV size and function, as well as Qp/Qs ratio. Electronically signed by : Julia Treviño MD 01/27/2024 20:00:18
== END 2024-01-27 23:59 | disposition home or self-care (01) ==
LOC: RT 07:42
PROVIDERS: PCP Internal Medicine; Visit Provider Physician Assistant
DX: I20.89 Other forms of angina pectoris (principal); R00.2 Palpitations; Z82.49 Family history of ischemic heart disease and other diseases of the circulatory system
CPT/HCPCS: 93306

== ENCOUNTER 2024-02-02 08:25 | Outpatient (CLI) | payer MEDICAID, SELFPAY ==
--- NOTE | 2024-02-02 08:25 | CA_ITS ---
APPROVED REPORT Exam: Exercise Treadmill Technologist: Sulma Sahu, Ht: 5 ft 7 in Wt: 221 lbs BSA: 2.11 m2 HR: 67 bpm BP: 146/91 mmHg Rhythm: NSR Stress Test Details Test: Get HR Resting HR: 87 bpm Max Heart Rate (APMHR): 198 bpm Max HR Achieved: 196 bpm Target HR (85% APMHR): 168 bpm % of APMHR: 99 Recovery HR: 129 bpm HR response to stress: Normal HR response to stress BP Resting BP: 136.0/89.0 mmHg Max BP: 190.0/92.0 mmHg Recovery BP: 161.0/90.0 mmHg BP response to stress: Normal blood pressure response to stress. ECG Resting ECG: NSR Stress EC.[address] depression Arrhythmia: None Recovery ECG: Return to baseline within 3 minutes of recovery Recovery Arrhythmia: None Clinical Exercise duration: 09:39 min Highest Stage Achieved: IV Exercise capacity: 10.1 METs Overall Exercise Capacity for Age: Average Stress ECG Conclusion 9:39 Min 10.1 METs Max HR: 195 % of PM: 116 Max BP: 190/92 METs: 10.1 Test stopped due to: Leg fatigue. Symptoms: No CP. Arrhythmias/Ectopy: None ST-T Changes: 0.[address] depression Conclusion: Average exercise capacity. No ECG evidence of ischemia at peak stress. Test Summary REST . . . . . . . Sitting REST . . . . . . . Standing REST 02:25 0.0 0.0 87 . 136/ 89 . . Stage 1 01:00 10.0 1.7 109 . . . . Stage 1 02:00 10.0 1.7 107 . . . . Stage 1 03:00 10.0 1.7 118 . 150/ 92 . . Stage 2 01:00 12.0 2.5 130 . . . . Stage 2 02:00 12.0 2.5 141 . 168/ 88 . . Stage 2 03:00 12.0 2.5 144 . 168/ 88 . . Stage 3 01:00 14.0 3.4 169 . . . . Stage 3 02:00 14.0 3.4 175 . . . . Stage 3 03:00 14.0 3.4 180 . 190/ 92 . . Stage 4 00:39 16.0 4.2 194 . . . Stop exercise at 09:39 RECOVERY 01:00 0.0 0.0 163 . . . . RECOVERY 02:00 0.0 0.0 133 . . . . RECOVERY 03:00 0.0 0.0 128 . 157/ 92 . . RECOVERY 03:37 0.0 0.0 130 . 161/ 90 . . Electronically signed by : Julia Treviño MD 02/03/2024 10:24:34
== END 2024-02-02 23:59 | disposition home or self-care (01) ==
LOC: RT 08:25
PROVIDERS: PCP Internal Medicine; Visit Provider Physician Assistant
DX: I20.89 Other forms of angina pectoris (principal); R00.2 Palpitations; Z82.49 Family history of ischemic heart disease and other diseases of the circulatory system
CPT/HCPCS: 93017; 93018

== ENCOUNTER 2024-03-25 18:55 | Emergency (ER) | payer MEDICAID, SELFPAY ==
[2024-03-25 19:10] VITALS: BP 137/86; PULSE 86; RESP 20; TEMP 37.4; O2SAT 97; BMI 34.0
--- NOTE | 2024-03-25 19:19 | EXP.UTC ---
Discharge Plan Disposition Patient Disposition: Home, Self-Care Condition: Good Prescriptions Prescriptions: New amoxicillin 875 mg tablet 875 mg PO Q12H Qty: 20 0RF iumetfllepkkmdv-tmfbrmzwk-HG [Bromfed DM] 2-30-10 mg/5 mL Syrup 5 ml PO Q6H PRN (Reason: Cough) Qty: 240 0RF Referrals Follow up/Referrals: Cullen Bravo [Primary Care Provider] - See instructions Activity Restrictions/Add. Instructions Additional Instructions/Restrictions: Drink plenty of fluids. Take tylenol or ibuprofen for pain or fever. Take the medications as directed. Follow up with your regular doctor. GO TO THE ER FOR ANY WORSENING SYMPTOMS Clinical Impressions Clinical Impression: Sinusitis, Acute viral syndrome, Exposure to 2019 novel coronavirus Stand Alone Forms Stand Alone Forms: Work/School Release Instructions Patient Instructions: Sinusitis, DI for Sinusitis Print Language Print Language: Sudanese Discharge ED Provider: Joe Buckner [facility] General Stated complaint: Drainage,sore throat,lethargic Mode of Arrival: Ambulatory Source of Information: Patient Time Seen by Provider: 03/25/24 19:16 Description of Symptoms (Recalled from Triage Doc. by RN): FATIGUE, SORE THROAT, GREEN/YELLOW DRAINAGE REQUESTING COVID TEST HEENT Symptoms (Recalled from RN notes): Yes Resp Symptoms (Recalled from RN notes): No Skin Symptoms (Recalled from RN notes): No MS Symptoms (Recalled from RN notes): No Functional Status (Recalled from RN notes): WNL History of Present Illness Provider Complaint: He states that for the past 2 days he has had worsening sinus congestion, sore throat and malaise. He denies fever. He has been exposed to covid-19 [address] work place. Related Data Previous Rx's ?Medication ?Instructions ?Recorded amoxicillin 875 mg tablet 875 mg PO Q12H #20 tabs 03/25/24 ugimvzczaatnnqr-pecwnkmidtogofr-NW 5 ml PO Q6H PRN Cough #240 mL 03/25/24 2 mg-30 mg-10 mg/5 mL oral syrup (Bromfed DM) Allergies Allergy/AdvReac Type Severity Reaction Status Date / Time azithromycin Allergy Rash Verified 01/26/24 10:44 ceftibuten [From Cedax] Allergy Rash Verified 01/26/24 10:44 Worker's Comp Is this a Worker's Comp case?: No [facility] Disclaimer: The information contained in this section may have been updated after the patient was seen, as this information can be updated by other users. Medical History (Updated 03/25/24 @ 19:23 by Joe Buckner APRN) Family history of early CAD Atypical angina Asthma Surgical History (Updated 01/26/24 @ 10:45 by Radhika Bloom) [place] teeth removed Hx of tonsillectomy Family History (Updated 01/26/24 @ 10:46 by Radhika Bloom) Grandfather Coronary artery disease Father Diabetes Social History (Updated 01/26/24 @ 10:47 by Radhika Bloom) Smoking Status: Never smoker alcohol intake: current alcohol intake frequency: holidays/special occasions only substance use type: denies use current occupational status: employed Travel in the last 8 weeks: None ROS Obtained: Yes All systems reviewed & no additional complaints except as documented Constitutional Constitutional: Reports chills and Reports fever(s) Eyes Eyes: Denies eye discharge ENT Ears, Nose, Mouth, and Throat: Reports as per HPI Cardiovascular Cardiovascular: Denies chest pain Respiratory Respiratory: Denies chest congestion and Reports cough Gastrointestinal Gastrointestingal: Reports nausea; Denies abdominal pain, constipation, cramping, diarrhea or vomiting Musculoskeletal Musculoskeletal: Denies arthralgias Integumentary/Breasts Skin/Breast: Denies rash Neurologic Neurologic: Denies paresthesias Physical Exam General General appearance: alert and in no apparent distress Eye Eye exam: Present normal appearance, PERRL and EOMI ENT ENT exam: Present mucous membranes moist and normal external ear exam Expanded ENT Exam External ear exam: Present normal external inspection TM/Canal exam: Bilateral TM: erythema and bulging Nose exam: Absent sinus tenderness Nasal speculum exam: Bilateral: normal Mouth exam: Present normal external inspection; Absent drooling Teeth exam: Present normal inspection Throat exam: Present tonsillar erythema and tonsillomegaly Neck Neck exam: Present normal inspection, full ROM and trachea midline; Absent tenderness, lymphadenopathy or thyromegaly Chest Chest inspection: Present normal inspection and symmetric chest wall rise; Absent tenderness or rash Respiratory Respiratory exam: Present normal lung sounds bilaterally; Absent respiratory distress, wheezes, stridor or accessory muscle use Cardiovascular Cardiovascular exam: Present regular rate, normal rhythm and normal heart sounds Abdominal Exam Abdominal exam: Present soft; Absent distention, tenderness, guarding, rebound or rigidity Extremities Exam Extremities exam: Present normal inspection, full ROM and normal capillary refill; Absent tenderness or calf tenderness Back Exam Back exam: Present normal inspection and full ROM; Absent tenderness Neurological Exam Neurological exam: Present alert and oriented X3 Psychiatric Psychiatric exam: Present normal affect and normal mood Skin Skin exam: Present warm, dry, intact and normal color Lymphatic Lymphatic Findings: no adenopathy Medical Decision Making Medical Records Medical records reviewed: No I reviewed the patient's medical records. Screening: Per USPSTF and CDC recommendations, given the prevalence of disease in our region, it is our hospital?s policy to screen for HIV and viral Hepatitis for all patients aged 18 and over and those with ongoing risk factors. Prakash Inquiry Pt receiving controlled substance: No Vital Signs: 03/25/24 19:10 Temperature 99.4 F Temperature Source Oral Pulse Rate [Left Radial] 86 Respiratory Rate 20 Blood Pressure [Left Arm] 137/86 Blood Pressure Mean [Left Arm] 103 02 Sat by Pulse Oximetry 97 Lab Data Lab results reviewed: Yes I reviewed the patient's lab results. Orders (Tests/Meds): ORDERS Category Date Time Status Covid-19 Nasal PCR ([facility]) Routine Lab 03/25/24 19:00 Received
[2024-03-25 19:22] LABS: UTC Strep Screen (Rapid) Negative (Negative)
[2024-03-25 19:30] VITALS: BP 137/86; PULSE 86; RESP 20; TEMP 37.4
== END 2024-03-25 19:34 | disposition home or self-care (01) ==
PROVIDERS: Emergency Provider Nurse Practitioner Family; PCP Internal Medicine
DX: J01.80 Other acute sinusitis (principal); B34.9 Viral infection, unspecified
CPT/HCPCS: 87635; 87880; 99213; G0381

== ENCOUNTER 2024-03-30 12:03 | Emergency (ER) | payer MEDICAID, SELFPAY ==
[2024-03-30 12:22] VITALS: BP 136/95; PULSE 95; RESP 16; TEMP 36.9; O2SAT 98; BMI 33.6
--- NOTE | 2024-03-30 12:26 | ED_ITS ---
Discharge Plan Disposition Patient Disposition: Home, Self-Care Condition: Good Prescriptions Prescriptions: New guaifenesin [Mucinex] 1,200 mg tablet extended release 12hr 1,200 mg PO BID PRN (Reason: congestion) Qty: 20 0RF fluticasone propionate [Flonase Allergy Relief] 50 mcg/actuation spray,suspension 1 - 2 spray intranasal DAILY Qty: 16 0RF Rx Instructions: administer into each nostril daily No Action amoxicillin 875 mg tablet 875 mg PO Q12H Qty: 20 0RF wmnwrmcqscsrkbh-kqyyvgeym-QD [Bromfed DM] 2-30-10 mg/5 mL Syrup 5 ml PO Q6H PRN (Reason: Cough) Qty: 240 0RF Referrals Follow up/Referrals: Cullen Bravo [Primary Care Provider] - See instructions Activity Restrictions/Add. Instructions Additional Instructions/Restrictions: *Monitor Temp, Over the counter Motrin or Tylenol as directed/as needed Tylenol every 4 hours and Motrin every 6 hours (as long as your family doctor has told you that you can take it) for fever or pain. and straight to ER if unable to lower temp less than 101.0 after medication given *Warm salt water gargles may help to soothe the throat *Throat Lozenges? *Warm fluids like tea with honey may help to soothe the throat? *Sleep elevated *Humidifier/Vaporizer *Flonase 2 sprays in each nostril daily but be aware that it may take 2-3 days before you notice improvement *Bromfed may cause drowsiness. Know how it effects you (your child) before driving, caring for small child, or sending your child to school. Not other antihistamines/allergy medications while taking bromfed Your throat swab was sent for culture. Those results are typically sent to your primary care. Be sure to follow up in 2-3 days with your family doctor/primary care physician if no improvement so they can review those result and treat if necessary. If you don?t have a primary care doctor, I recommend you get one but in the mean time, you will have to return to a walk in clinic Follow up IMMEDIATELY for new or worsening symptoms or no Noticeable improvement over the next 48-72 hours. 911 for difficulty breathing or swallowing You were tested for today for Upper Respiratory Panel your test result should be back in the next 24hours, you may check your results on the [facility] My Health Portal Clinical Impressions Clinical Impression: Viral syndrome Instructions Patient Instructions: Sore Throat, Cough Print Language Print Language: German Discharge ED Provider: Tiffanie Schultz [facility] HPI General Stated complaint: sore throat soa chest and head congestion Mode of Arrival: Ambulatory Source of Information: Patient Limitations: No Limitations Time Seen by Provider: 03/30/24 12:26 Description of Symptoms (Recalled from Triage Doc. by RN): Patient reports worsening symptoms since his last visit. Productive cough, raw throat, and fatigue. HEENT Symptoms (Recalled from RN notes): Yes Resp Symptoms (Recalled from RN notes): No Skin Symptoms (Recalled from RN notes): No MS Symptoms (Recalled from RN notes): No Functional Status (Recalled from RN notes): wnl History of Present Illness Provider Complaint: Patient states that he was seen on the 3rd and had a COVID, Flu and strep test States it was all negative and was started on Amoxicillin and bromfed States he was doing better but last night his cough got worse, his throat was sore again and at times he is coughing up mucous and feels like he is loosing his voice so today he came in to get checked states also had a little loose soft stool earlier today Related Data Previous Rx's ?Medication ?Instructions ?Recorded amoxicillin 875 mg tablet 875 mg PO Q12H #20 tabs 03/25/24 jffabzcnhbibojb-odvpmucueyhknwe-GS 5 ml PO Q6H PRN Cough #240 mL 03/25/24 2 mg-30 mg-10 mg/5 mL oral syrup (Bromfed DM) fluticasone propionate 50 1 - 2 spray intranasal DAILY #16 03/30/24 mcg/actuation nasal grams spray,suspension (Flonase Allergy Relief) guaifenesin 1,200 mg tablet, 1,200 mg PO BID PRN congestion #20 03/30/24 extended release 12 hr (Mucinex) tabs Allergies Allergy/AdvReac Type Severity Reaction Status Date / Time azithromycin Allergy Rash Verified 01/26/24 10:44 ceftibuten [From Cedax] Allergy Rash Verified 01/26/24 10:44 Worker's Comp Is this a Worker's Comp case?: No [facility] Disclaimer: The information contained in this section may have been updated after the patient was seen, as this information can be updated by other users. Medical History (Updated 03/30/24 @ 12:45 by Tiffanie Schultz APRN) Family history of early CAD Atypical angina Asthma Surgical History (Updated 01/26/24 @ 10:45 by Radhika Bloom) [place] teeth removed Hx of tonsillectomy Family History (Updated 01/26/24 @ 10:46 by Radhika Bloom) Grandfather Coronary artery disease Father Diabetes Social History (Updated 01/26/24 @ 10:47 by Radhika Bloom) Smoking Status: Never smoker alcohol intake: current alcohol intake frequency: holidays/special occasions only substance use type: denies use current occupational status: employed Travel in the last 8 weeks: None ROS Obtained: Yes All systems reviewed & no additional complaints except as documented and Yes Systems reviewed as appropriate & no additional complaints except as documented Constitutional Constitutional: Reports system reviewed and no additional complaints, except as documented, Reports as per HPI and Reports body ache Eyes Eyes: Reports system reviewed and no additional complaints, except as documented and Reports as per HPI ENT Ears, Nose, Mouth, and Throat: Reports sore throat Cardiovascular Cardiovascular: Reports system reviewed and no additional complaints, except as documented and Reports as per HPI Respiratory Respiratory: Reports system reviewed and no additional complaints, except as documented, Reports as per HPI, Reports chest congestion and Reports cough Gastrointestinal Gastrointestingal: Reports system reviewed and no additional complaints, except as documented and as per HPI Physical Exam General General appearance: alert and in no apparent distress ENT ENT exam: Present mucous membranes moist Expanded ENT Exam Nose exam: Absent sinus tenderness Throat exam: Present other (Pharyngeal erythema noted with PND) Chest Chest inspection: Present normal inspection and symmetric chest wall rise Respiratory Respiratory exam: Present normal lung sounds bilaterally; Absent respiratory distress or wheezes Cardiovascular Cardiovascular exam: Present regular rate, normal rhythm and normal heart sounds Neurological Exam Neurological exam: Present alert, oriented X3 and normal gait Medical Decision Making Medical Records Screening: Per USPSTF and CDC recommendations, given the prevalence of disease in our region, it is our hospital?s policy to screen for HIV and viral Hepatitis for all patients aged 18 and over and those with ongoing risk factors. Prakash Inquiry Pt receiving controlled substance: No Prakash was queried for this patient: No Vital Signs: 03/30/24 12:22 Temperature 98.4 F Temperature Source Oral Pulse Rate [Radial] 95 H Respiratory Rate 16 Blood Pressure [Right Arm] 136/95 H Blood Pressure Mean [Right Arm] 108 Blood Pressure Source [Right Arm] Automatic Cuff Blood Pressure Position [Right Arm] Sitting 02 Sat by Pulse Oximetry 98 Oxygen Delivery Method Room Air Lab Data Lab results reviewed: Yes I reviewed the patient's lab results. Medical Decision Narrative: Discussed CXR and Full respiratory panel patient agreed for the URP but declined CXR at this time
[2024-03-30 12:36] LABS: Adenovirus,PCR Not Detected (NotDetected); Bordetella Pertussis Not Detected (NotDetected); Chlamydophila Pneumoniae, PCR Not Detected (NotDetected); Coronavirus 19, PCR Not Detected (NotDetected); Coronavirus 229E Not Detected (NotDetected); Coronavirus NL63 Not Detected (NotDetected); Coronavirus OC43 Not Detected (NotDetected); Coronovirus HKU1,PCR Not Detected (NotDetected); Human Metapneumovirus Not Detected (NotDetected); Influenza A, PCR Not Detected (NotDetected); Influenza AH1, 2009 Not Detected (NotDetected); Influenza AH1, PCR Not Detected (NotDetected); Influenza AH3,PCR Not Detected (NotDetected); Influenza B, PCR Not Detected (NotDetected); Mycoplasma Pneumoniae, PCR Not Detected (NotDetected); Parainfluenza 1, PCR Not Detected (NotDetected); Parainfluenza 2, PCR Not Detected (NotDetected); Parainfluenza 3, PCR Not Detected (NotDetected); Parainfluenza 4, PCR Not Detected (NotDetected); Respiratory Syncytial Virus Not Detected (NotDetected); Rhinovirus/Enterovirus Not Detected (NotDetected)
[2024-03-30 12:36] LABS: UTC Strep Screen (Rapid) Negative (Negative)
[2024-03-30 12:51] VITALS: BP 136/95; PULSE 95; RESP 16; TEMP 36.9; O2SAT 98
== END 2024-03-30 12:52 | disposition home or self-care (01) ==
PROVIDERS: Emergency Provider Nurse Practitioner; PCP Internal Medicine
DX: B34.9 Viral infection, unspecified (principal)
CPT/HCPCS: 87265; 87486; 87581; 87632; 87635; 87880; 99213; G0381

== ENCOUNTER 2024-04-22 22:52 | Emergency (ER) | payer MEDICAID, SELFPAY ==
[2024-04-22 22:55] VITALS: BP 130/98; PULSE 91; RESP 16; TEMP 36.6; O2SAT 99; BMI 34.1
[2024-04-22 23:13] VITALS: BP 130/98; PULSE 91; RESP 18; TEMP 36.6; O2SAT 99
--- NOTE | 2024-04-22 23:19 | HMH.EDGENADL ---
Discharge Plan Disposition Patient Disposition: Home, Self-Care Prescriptions Prescriptions: No Action guaifenesin [Mucinex] 1,200 mg tablet extended release 12hr 1,200 mg PO BID PRN (Reason: congestion) Qty: 20 0RF fluticasone propionate [Flonase Allergy Relief] 50 mcg/actuation spray,suspension 1 - 2 spray intranasal DAILY Qty: 16 0RF Rx Instructions: administer into each nostril daily amoxicillin 875 mg tablet 875 mg PO Q12H Qty: 20 0RF evakthcdelwfrth-ccxmggtpo-JV [Bromfed DM] 2-30-10 mg/5 mL Syrup 5 ml PO Q6H PRN (Reason: Cough) Qty: 240 0RF Referrals Follow up/Referrals: Cullen Bravo [Primary Care Provider] - See instructions Activity Restrictions/Add. Instructions Additional Instructions/Restrictions: Please follow-up with your primary care provider. Please return to the emergency department if you develop any new or worsening symptoms or become concerned for your health. Clinical Impressions Clinical Impression: Encounter for medical assessment Print Language Print Language: Welsh Discharge ED Provider: Valentin Del Cid General Adult HPI General Chief complaint: Recheck/Abnormal Lab/Rx Stated complaint: HBP,Fast HR,tingling in leg arm,denies CP Time Seen by Provider: 04/22/24 23:00 Mode of Arrival: Ambulatory Source of Information: Patient Limitations: No Limitations Description of Symptoms (Recalled from ER Triage Doc. by RN): Pt presents to ED for elevated BP. Pt states this started approx 30 minutes ago. Pt states he does not have a history of HTN. History of Present Illness HPI narrative: 24-year-old male with no significant past medical history, reports history of undiagnosed anxiety, presents for asymptomatic hypertension. He reports that he felt a little weird and so checked his blood pressure. It was in the 140s. He became more anxious about it and so decided to come to the ER to be seen. His initial systolic was 160 but upon recheck was 130. He continues to deny any chest pain abdominal pain shortness of breath headache vision changes etc. He reports he does not have a history of hypertension as far as he is aware. He denies any other symptoms at this time. Related Data Previous Rx's ?Medication ?Instructions ?Recorded amoxicillin 875 mg tablet 875 mg PO Q12H #20 tabs 03/25/24 qkqkwwerlwsmmvt-jakijoezvhgsvwf-XL 5 ml PO Q6H PRN Cough #240 mL 03/25/24 2 mg-30 mg-10 mg/5 mL oral syrup (Bromfed DM) fluticasone propionate 50 1 - 2 spray intranasal DAILY #16 03/30/24 mcg/actuation nasal grams spray,suspension (Flonase Allergy Relief) guaifenesin 1,200 mg tablet, 1,200 mg PO BID PRN congestion #20 03/30/24 extended release 12 hr (Mucinex) tabs Allergies Allergy/AdvReac Type Severity Reaction Status Date / Time azithromycin Allergy Rash Verified 01/26/24 10:44 ceftibuten [From Cedax] Allergy Rash Verified 01/26/24 10:44 PFSH [facility] Disclaimer: The information contained in this section may have been updated after the patient was seen, as this information can be updated by other users. Medical History (Updated 04/22/24 @ 23:19 by Valentin Del Cid MD) Family history of early CAD Atypical angina Asthma Surgical History (Updated 01/26/24 @ 10:45 by Radhika Bloom) [place] teeth removed Hx of tonsillectomy Family History (Updated 01/26/24 @ 10:46 by Radhika Bloom) Grandfather Coronary artery disease Father Diabetes Social History (Updated 01/26/24 @ 10:47 by Radhika Bloom) Smoking Status: Unknown if ever smoked alcohol intake: current alcohol intake frequency: holidays/special occasions only substance use type: denies use current occupational status: employed Travel in the last 8 weeks: None Other Medical History Have you received the Flu Vaccine for this season: No Have you received the Pneumonia Vaccine: No ROS Obtained: Yes All systems reviewed & no additional complaints except as documented Physical Exam General General appearance: alert and in no apparent distress Head Head exam: atraumatic and normocephalic Eye Eye exam: Present normal appearance, PERRL and EOMI ENT ENT exam: Present normal oropharynx and normal external ear exam Neck Neck exam: Present normal inspection and full ROM Chest Chest inspection: Present normal inspection and symmetric chest wall rise; Absent tenderness Respiratory Respiratory exam: Present normal lung sounds bilaterally; Absent respiratory distress Cardiovascular Cardiovascular exam: Present regular rate and normal rhythm Abdominal Exam Abdominal exam: Present soft; Absent distention, tenderness or guarding Extremities Exam Extremities exam: Present normal inspection; Absent edema or joint swelling Back Exam Back exam: Present normal inspection; Absent tenderness Neurological Exam Neurological exam: Present alert and oriented X3; Absent motor sensory deficit Psychiatric Psychiatric exam: Present normal affect and normal mood Skin Skin exam: Present warm, dry and normal color Lymphatic Lymphatic Findings: no adenopathy Medical Decision Making Medical Records Medical records reviewed: Yes I reviewed the patient's medical records. Screening: Per USPSTF and CDC recommendations, given the prevalence of disease in our region, it is our hospital?s policy to screen for HIV and viral Hepatitis for all patients aged 18 and over and those with ongoing risk factors. Prakash Inquiry Pt receiving controlled substance: No Prakash was queried for this patient: No Vital Signs: 04/22/24 22:55 04/22/24 23:13 04/22/24 23:20 Temperature 97.9 F 97.9 F 97.9 F Temperature Source Tympanic Tympanic Pulse Rate 79 Pulse Rate [Left] 91 H 91 H Respiratory Rate 16 18 16 Blood Pressure 132/90 Blood Pressure [Right Arm] 130/98 H 130/98 H Blood Pressure Mean [Right Arm] 108 108 02 Sat by Pulse Oximetry 99 99 Oxygen Delivery Method Room Air Room Air Room Air Lab Data Lab results reviewed: Yes I reviewed the patient's lab results. Medical Decision Narrative: 24-year-old male without significant past medical history presents for medical assessment due to concern for hypertension. Differential diagnosis includes but not limited to hypertensive urgency, hypertensive emergency, asymptomatic hypertension. Patient's blood pressure was initially elevated to 160 systolic, on repeat was 130/98. I had extensive discussion with patient regarding his presentation, acute versus chronic hypertension, any associated symptoms etc. No concern for emergent pathology at this time. Patient's presentation is most consistent with a somatic hypertension. Blood work and imaging was considered but deemed unnecessary given history and exam. Patient discharged in stable condition. Procedures Risk/Benefits of Procedure(s) Were Explained: Yes Critical Care Critical Care Time Critical Care Time: No
[2024-04-22 23:20] VITALS: BP 132/90; PULSE 79; RESP 16; TEMP 36.6; O2SAT 98
== END 2024-04-22 23:33 | disposition home or self-care (01) ==
LOC: ER 23:21
PROVIDERS: Emergency Provider Emergency Medicine; PCP Internal Medicine
DX: Z00.8 Encounter for other general examination (principal); R03.0 Elevated blood-pressure reading, without diagnosis of hypertension
CPT/HCPCS: 99282

== ENCOUNTER 2024-05-18 02:22 | Emergency (ER) | payer MEDICAID, SELFPAY ==
[2024-05-18 02:24] VITALS: BP 164/104; PULSE 97; RESP 18; TEMP 36.7; O2SAT 98; BMI 34.4
[2024-05-18] MEDS: MECLIZINE 25MG TABLET 25 MG PO (02:42)
--- NOTE | 2024-05-18 02:43 | ED_ITS ---
Discharge Plan Prescriptions Prescriptions: No Action guaifenesin [Mucinex] 1,200 mg tablet extended release 12hr 1,200 mg PO BID PRN (Reason: congestion) Qty: 20 0RF fluticasone propionate [Flonase Allergy Relief] 50 mcg/actuation spray,suspension 1 - 2 spray intranasal DAILY Qty: 16 0RF Rx Instructions: administer into each nostril daily amoxicillin 875 mg tablet 875 mg PO Q12H Qty: 20 0RF dkudmqvdhzshooy-nopzwhyvi-DX [Bromfed DM] 2-30-10 mg/5 mL Syrup 5 ml PO Q6H PRN (Reason: Cough) Qty: 240 0RF Referrals Follow up/Referrals: Provider,Referral, MD [Primary Care Provider] - See instructions Activity Restrictions/Add. Instructions Additional Instructions/Restrictions: Please follow-up with your primary care provider. Please return to the emergency department if you develop any new or worsening symptoms or become concerned for your health. Clinical Impressions Clinical Impression: Shakiness, HTN (hypertension) Print Language Print Language: Maltese Discharge ED Provider: Valentin Del Cid General Adult HPI General Chief complaint: Anxiety Stated complaint: dizziness, lightheaded,shaky possible panic attack Time Seen by Provider: 05/18/24 02:25 Mode of Arrival: Wheelchair Source of Information: Patient Limitations: No Limitations Description of Symptoms (Recalled from ER Triage Doc. by RN): pt reports he began feeling lightheaded and like his head was spinning when he got home from work approximately 30 minutes ago. pt reports a hx of anxiety with panic attacks History of Present Illness HPI narrative: 24-year-old male with history of hypertension, palpitations, anxiety presents for episode of lightheadedness and shakiness that started while he was sitting in his car. He got home from work and was sitting in his car unwinding from the day when he started feeling lightheaded nauseous and shaky. He reports that he was not anxious at the time, no recent stressors. He denies any chest pain abdominal pain shortness of breath. Related Data Previous Rx's ?Medication ?Instructions ?Recorded amoxicillin 875 mg tablet 875 mg PO Q12H #20 tabs 03/25/24 kanodcqloncrlba-icxnnjzdrzxxzsq-GT 5 ml PO Q6H PRN Cough #240 mL 03/25/24 2 mg-30 mg-10 mg/5 mL oral syrup (Bromfed DM) fluticasone propionate 50 1 - 2 spray intranasal DAILY #16 03/30/24 mcg/actuation nasal grams spray,suspension (Flonase Allergy Relief) guaifenesin 1,200 mg tablet, 1,200 mg PO BID PRN congestion #20 03/30/24 extended release 12 hr (Mucinex) tabs Allergies Allergy/AdvReac Type Severity Reaction Status Date / Time azithromycin Allergy Rash Verified 01/26/24 10:44 ceftibuten (From Cedax) Allergy Rash Verified 01/26/24 10:44 [facility] Disclaimer: The information contained in this section may have been updated after the patient was seen, as this information can be updated by other users. Medical History (Updated 05/18/24 @ 03:15 by Valentin Del Cid MD) Family history of early CAD Atypical angina Asthma Surgical History (Updated 01/26/24 @ 10:45 by Radhika Bloom) [place] teeth removed Hx of tonsillectomy Family History (Updated 01/26/24 @ 10:46 by Radhika Bloom) Grandfather Coronary artery disease Father Diabetes Social History (Updated 01/26/24 @ 10:47 by Radhika Bloom) Smoking Status: Never smoker alcohol intake: current alcohol intake frequency: holidays/special occasions only substance use type: denies use current occupational status: employed Other Medical History Have you received the Flu Vaccine for this season: No Have you received the Pneumonia Vaccine: No ROS Obtained: Yes All systems reviewed & no additional complaints except as documented Physical Exam General General appearance: alert and in no apparent distress Head Head exam: atraumatic and normocephalic Eye Eye exam: Present normal appearance, PERRL and EOMI ENT ENT exam: Present normal oropharynx and normal external ear exam Neck Neck exam: Present normal inspection and full ROM Chest Chest inspection: Present normal inspection and symmetric chest wall rise; Absent tenderness Respiratory Respiratory exam: Present normal lung sounds bilaterally; Absent respiratory distress Cardiovascular Cardiovascular exam: Present regular rate and normal rhythm Abdominal Exam Abdominal exam: Present soft; Absent distention, tenderness or guarding Extremities Exam Extremities exam: Present normal inspection; Absent edema or joint swelling Back Exam Back exam: Present normal inspection; Absent tenderness Neurological Exam Neurological exam: Present alert and oriented X3; Absent motor sensory deficit Psychiatric Psychiatric exam: Present normal affect and normal mood Skin Skin exam: Present warm, dry and normal color Lymphatic Lymphatic Findings: no adenopathy Medical Decision Making Medical Records Medical records reviewed: Yes I reviewed the patient's medical records. Screening: Per USPSTF and CDC recommendations, given the prevalence of disease in our region, it is our hospital?s policy to screen for HIV and viral Hepatitis for all patients aged 18 and over and those with ongoing risk factors. Prakash Inquiry Pt receiving controlled substance: No Prakash was queried for this patient: No Vital Signs: 05/18/24 02:24 05/18/24 03:15 Temperature 98.0 F 98.4 F Temperature Source Oral Pulse Rate 86 Pulse Rate [Right] 97 H Respiratory Rate 18 16 Blood Pressure 141/96 H Blood Pressure [Right Arm] 164/104 H Blood Pressure Mean [Right Arm] 124 02 Sat by Pulse Oximetry 98 Oxygen Delivery Method Room Air Lab Data Lab results reviewed: Yes I reviewed the patient's lab results. Lab Results 05/18/24 02:50: WBC 10.3, RBC 5.67, Hgb 16.5, Hct 48.9, MCV 86.3, MCH 29.2, MCHC 33.8, RDW 13.4, Plt Count 275, MPV 7.3 L, Neut % (Auto) 55.6, Lymph % (Auto) 35.8, [place] % (Auto) 5.5, Eos % (Auto) 1.7, Baso % (Auto) 1.4, Neut # (Auto) 5.7, Lymph # (Auto) 3.7, [place] # (Auto) 0.6, Eos # (Auto) 0.2, Baso # (Auto) 0.1, Sodium 138, Potassium 4.0, Chloride 104, Carbon Dioxide 24, Anion Gap 14.0, BUN 18, Creatinine 1.10, Estimated Creat Clear 147, Estimated GFR 83, Est GFR ( Amer) 100, Glucose 102 H, Calcium 9.3, Total Bilirubin 0.8, AST 67 H, ALT 50, Alkaline Phosphatase 83, Total Protein 7.7, Albumin 4.6, Globulin 3.1, Albumin/Globulin Ratio 1.5 05/18/24 02:50 05/18/24 02:50 Orders (Tests/Meds): ED MEDICATIONS Discontinued Medications Generic Name Dose Route Start Last Admin Trade Name Freq PRN Reason Stop Dose Admin Meclizine HCl 25 mg 05/18/24 02:41 05/18/24 02:42 Meclizine 25mg Tablet PO 05/18/24 02:42 25 mg ONCE ONE Administration ORDERS Category Date Time Status CBC w/Auto Diff [Complete Blood Count Auto Diff] Stat Lab 05/18/24 02:50 Completed CMP [Comprehensive Metabolic Panel] Stat Lab 05/18/24 02:50 Completed ECG Data Tracing #1: I reviewed this ECG and interpreted as documented below: Sinus rhythm, rate of 90, no concerning ST changes, no evidence of arrhythmia ECG initial impression date: 05/18/24 ECG initial impression time: 02:53 Medical Decision Narrative: 24-year-old male with history of hypertension, anxiety presents for episode of dizziness and shakiness at home while sitting in his car parked in his driveway. History was obtained via interactive discussion with patient, family, chart review. On arrival, patient is [afebrile, hemodynamically stable, satting appropriately, alert, oriented x4, GCS 15], moving all extremities spontaneously. Full physical exam performed and significant for no significant physical exam normalities, normal neurologic exam Differential includes but is not limited to vagal episode, dehydration, anxiety, arrhythmia electrolyte derangement. Patient was given meclizine for symptomatic management and correction of underlying abnormalities. Workup initiated including CBC CMP EKG. On re-evaluation, patient [remains afebrile, HD stable.] Reports symptomatic improvement. Laboratory workup independently interpreted by me and significant for minimally elevated AST, otherwise unremarkable labs, no leukocytosis. EKG independently interpreted by me and significant for normal sinus rhythm. Unclear underlying etiology at this time. No evidence of emergent pathology. Patient's blood pressure is a bit high, in the 140s and 150s systolic. He was encouraged to follow-up with PCP for reassessment and management of his blood pressure. Procedures Risk/Benefits of Procedure(s) Were Explained: Yes Critical Care Critical Care Time Critical Care Time: No
--- NOTE | 2024-05-18 02:52 | ECG_ITS ---
APPROVED REPORT Exam: Resting ECG HR:90 bpm ECG Measurements Heart Rate 90 AXES DC 149 P 39 QRSd 96 QRS 13 QT 347 T 15 QTc 395 Conclusion SINUS RHYTHM WITH SINUS ARRHYTHMIA NORMAL ECG UNCONFIRMED REPORT Electronically signed by : CARLYN HESS, 05/20/2024 06:26:43
[2024-05-18 02:57] LABS: Basophils # 0.1 K/mm3 (0-0.2); Basophils % 1.4 % (0.1-2.0); Eosinophils # 0.2 K/mm3 (0.0-0.4); Eosinophils % 1.7 % (0.1-12.0); Hematocrit 48.9 % (42.0-52.0); Hemoglobin 16.5 g/dL (14.1-18.0); Lymphocytes # 3.7 K/mm3 (0.7-4.5); Lymphocytes % 35.8 % (10-50); Mean Corpuscular HGB Conc 33.8 g/dL (31.8-35.4); Mean Corpuscular Hemoglobin 29.2 pg (27.0-31.2); Mean Corpuscular Volume 86.3 fl (80-94); Mean Platelet Volume 7.3 fl (7.4-10.4); Monocytes # 0.6 K/mm3 (0.1-1.0); Monocytes % 5.5 % (1.7-9.3); Neutrophils # 5.7 K/mm3 (1.8-7.8); Neutrophils % 55.6 % (37.0-80.0); Platelet Count 275 K/mm3 (142-424); Red Blood Count 5.67 M/mm3 (4.60-6.20); Red Cell Distribution Width 13.4 % (11.5-17.5); White Blood Count 10.3 K/mm3 (4.8-10.8)
[2024-05-18 03:01] LABS: Albumin Level 4.6 g/dl (3.5-5.0); Chloride 104 mmol/L (98-107)
[2024-05-18 03:02] LABS: Sodium 138 mmol/L (136-145)
[2024-05-18 03:04] LABS: Alanine Aminotransferase 50 U/L (12-78); Alkaline Phosphatase 83 U/L (38-126); Aspartate Amino Transferase 67 U/L (17-59); Bilirubin,Total 0.8 mg/dl (0.2-1.3); Blood Urea Nitrogen 18 mg/dl (9-20); Carbon Dioxide 24 mmol/L (22.0-30.0); Creatinine Clearance Estimated 147 mL/min (50-200); Estimated Glomerular Filt Rate 83 ml/min (>60); GFR (African American) 100 ML/MIN (>60)
[2024-05-18 03:05] LABS: Albumin/Globulin Ratio 1.5 (1.1-1.8); Calcium 9.3 mg/dl (8.4-10.2); Globulin 3.1 g/dL (1.3-3.2); Glucose 102 mg/dl (74-100); Total Protein,Serum 7.7 g/dl (6.3-8.2)
[2024-05-18 03:15] VITALS: BP 141/96; PULSE 86; RESP 16; TEMP 36.9; O2SAT 98
== END 2024-05-18 03:23 | disposition home or self-care (01) ==
PROVIDERS: Emergency Provider Emergency Medicine
DX: R25.1 Tremor, unspecified (principal); I10 Essential (primary) hypertension; R42 Dizziness and giddiness; R25.9 Unspecified abnormal involuntary movements; R11.0 Nausea
CPT/HCPCS: 80053; 85025; 93005; 99283

== ENCOUNTER 2024-07-19 13:03 | Emergency (ER) | payer MEDICAID, SELFPAY ==
[2024-07-19 13:04] VITALS: BP 162/101; PULSE 116; RESP 18; O2SAT 100; BMI 32.1
--- NOTE | 2024-07-19 13:32 | ED_ITS ---
<Statement entered by Yuri Kurtz MD - 07/19/24 18:31> I was consulted by the HAL, and we discussed the complexity of the problems being addressed. I approved the treatment and management plan for this patient's care in the emergency department, thus performing a substantive portion of the medical decision making. Yuri Kurtz MD Discharge Plan Disposition Patient Disposition: Home, Self-Care Condition: Good Prescriptions Prescriptions: No Action guaifenesin [Mucinex] 1,200 mg tablet extended release 12hr 1,200 mg PO BID PRN (Reason: congestion) Qty: 20 0RF fluticasone propionate [Flonase Allergy Relief] 50 mcg/actuation spray,suspension 1 - 2 spray intranasal DAILY Qty: 16 0RF Rx Instructions: administer into each nostril daily amoxicillin 875 mg tablet 875 mg PO Q12H Qty: 20 0RF pyklcheyirtiucv-oodbokvwa-VL [Bromfed DM] 2-30-10 mg/5 mL Syrup 5 ml PO Q6H PRN (Reason: Cough) Qty: 240 0RF Referrals Follow up/Referrals: Gillian Martinez APRN [Nurse Practitioner] - See instructions Rocco Peterson DO [Staff Physician] - See instructions Cullen Bravo [Primary Care Provider] - See instructions Activity Restrictions/Add. Instructions Additional Instructions/Restrictions: Appointment to the Yasir we discussed I am referring you both to a primary care physician for further workup as well as to behavioral health to help with your anxiety and further workup there.. Return to the ER for any worsening signs or symptoms as needed. Clinical Impressions Clinical Impression: ALEXANDRU (generalized anxiety disorder) Print Language Print Language: Hebrew Discharge ED Provider: Yuri Kurtz General Adult HPI <RAMSES Carballo - Last Filed: 07/19/24 16:00> General Chief complaint: Anxiety Stated complaint: panic attack Time Seen by Provider: 07/19/24 13:19 Mode of Arrival: Ambulatory Source of Information: Patient Limitations: No Limitations Description of Symptoms (Recalled from ER Triage Doc. by RN): c/o shaking, cold hands and increased hr. Pt states that he was driving home listening to music when he started feeling warm and fuzzy headed and then he started with symptoms. Pt reports that he feels this is a panic attack. Denies any vision change History of Present Illness HPI narrative: Patient presents for evaluation of a panic attack. Patient states that he was driving home and began having rapid heart rate and shortness of breath while driving. He thought he was able to calm himself down however he decided to come to the emergency department for evaluation but had another [address]. Patient denies any other symptoms including chest pain fever chills hemoptysis hematochezia melena nausea vomiting diarrhea. He states that he feels like his heart beats fast and he breathes really fast. He self-diagnosis as a panic attack but is never actually had a CORDOVA or official diagnosis of anxiety or panic disorder. Related Data Previous Rx's ?Medication ?Instructions ?Recorded amoxicillin 875 mg tablet 875 mg PO Q12H #20 tabs 03/25/24 aqyfoinrcdxlseh-jfnohputklklsby-IX 5 ml PO Q6H PRN Cough #240 mL 03/25/24 2 mg-30 mg-10 mg/5 mL oral syrup (Bromfed DM) fluticasone propionate 50 1 - 2 spray intranasal DAILY #16 03/30/24 mcg/actuation nasal grams spray,suspension (Flonase Allergy Relief) guaifenesin 1,200 mg tablet, 1,200 mg PO BID PRN congestion #20 03/30/24 extended release 12 hr (Mucinex) tabs Allergies Allergy/AdvReac Type Severity Reaction Status Date / Time azithromycin Allergy Rash Verified 01/26/24 10:44 ceftibuten (From Cedax) Allergy Rash Verified 01/26/24 10:44 PFSH <RAMSES Carballo - Last Filed: 07/19/24 16:00> [facility] Disclaimer: The information contained in this section may have been updated after the patient was seen, as this information can be updated by other users. Medical History (Updated 07/19/24 @ 15:55 by RAMSES Carballo) Family history of early CAD Atypical angina Asthma Surgical History (Updated 01/26/24 @ 10:45 by Radhika Bloom) [place] teeth removed Hx of tonsillectomy Family History (Updated 01/26/24 @ 10:46 by Radhika Bloom) Grandfather Coronary artery disease Father Diabetes Social History (Updated 01/26/24 @ 10:47 by Radhika Bloom) Smoking Status: Never smoker alcohol intake: current alcohol intake frequency: holidays/special occasions only substance use type: denies use current occupational status: employed Travel in the last 8 weeks: None Have you lived/traveled outside US in past 30 days?: No Contact w/someone who lives/traveled outside US past 30 days?: No Exposure to someone with infectious disease in past 14 days?: No Do you have a fever (greater than 100.4 F or 38 C)?: No Have you tested positive for COVID-19: No Exposed to someone with COVID-19 in past 14 days?: No Do you have a sore throat?: No Do you have a cough?: No Do you have any weakness?: No Do you have any diarrhea?: No Are you experiencing any unusual bleeding?: No Do you have any muscle aches/pain?: No Do you have any abdominal pain?: No Are you experiencing loss of taste or smell?: No Other Medical History Have you received the Flu Vaccine for this season: No Have you received the Pneumonia Vaccine: No <RAMSES Carballo - Last Filed: 07/19/24 16:00> ROS Obtained: Yes Systems reviewed as appropriate & no additional complaints except as documented Physical Exam <RAMSES Carballo - Last Filed: 07/19/24 16:00> General General appearance: alert and in no apparent distress Respiratory Respiratory exam: Present normal lung sounds bilaterally Cardiovascular Cardiovascular exam: Present tachycardia Neurological Exam Neurological exam: Present alert and oriented X3 Psychiatric Psychiatric exam: Present anxious Medical Decision Making <RAMSES Carballo - Last Filed: 07/19/24 16:00> Medical Records Medical records reviewed: Yes I reviewed the patient's medical records. Screening: Per USPSTF and CDC recommendations, given the prevalence of disease in our region, it is our hospital?s policy to screen for HIV and viral Hepatitis for all patients aged 18 and over and those with ongoing risk factors. Prakash Inquiry Pt receiving controlled substance: No Vital Signs: 07/19/24 13:04 07/19/24 14:30 07/19/24 15:54 Temperature 98.4 F Temperature Source Oral Pulse Rate 89 Pulse Rate [Left Radial] 116 H Respiratory Rate 18 Blood Pressure 124/84 Blood Pressure [Right Arm] 162/101 H Blood Pressure Mean [Right Arm] 121 02 Sat by Pulse Oximetry 100 97 Oxygen Delivery Method Room Air 01/27/25 16:00 Temperature Temperature Source Pulse Rate 80 Pulse Rate [Left Radial] Respiratory Rate 16 Blood Pressure 124/84 Blood Pressure [Right Arm] Blood Pressure Mean [Right Arm] 02 Sat by Pulse Oximetry 98 Oxygen Delivery Method Room Air Lab Data Lab results reviewed: Yes I reviewed the patient's lab results. Lab Results 07/19/24 14:17: WBC 6.6, RBC 5.65, Hgb 16.5, Hct 47.8, MCV 84.6, MCH 29.2, MCHC 34.5, RDW 12.5, Plt Count 258, MPV 9.7, Neut % (Auto) 64.7, Lymph % (Auto) 26.5, Winston % (Auto) 6.7, Eos % (Auto) 1.1, Baso % (Auto) 0.8, Neut # (Auto) 4.3, Lymph # (Auto) 1.8, Winston # (Auto) 0.4, Eos # (Auto) 0.1, Baso # (Auto) 0.1, Sodium 140, Potassium 3.8, Chloride 106, Carbon Dioxide 26, Anion Gap 11.8, BUN 12, Creatinine 1.00, Estimated Creat Clear 151, Estimated GFR 93, Est GFR ( Amer) 112, Glucose 115 H, Calcium 10.0, Magnesium 1.8, Total Bilirubin 0.5, AST 77 H, ALT 60, Alkaline Phosphatase 69, Troponin I < 0.01, Total Protein 7.5, Albumin 4.8, Globulin 2.7, Albumin/Globulin Ratio 1.8, TSH 0.46 L, Free T4 Index 3.2 L, Thyroxine (T4) 9.2, T3 Uptake 35 07/19/24 14:53: Urine Color Yellow, Urine Appearance Clear, Urine pH 5.5, Ur Specific Levant 1.010, Urine Protein Negative, Urine Glucose (UA) Negative, Urine Ketones Negative, Urine Blood Negative, Urine Nitrate Negative, Urine Bilirubin Negative, Urine Urobilinogen 0.2, Ur Leukocyte Esterase Negative, Urine RBC None, Urine WBC None, Ur Squamous Epith Cells None, Urine Bacteria None, Urine Opiates Screen Negative, Urine Methadone Screen Negative, Ur Barbituates Screen Negative, Ur Phencyclidine Scrn Negative, Ur Amphetamines Screen Negative, U Benzodiazepines Scrn Negative, Urine Cocaine Screen Negative, U Marijuana (THC) Screen Negative 07/19/24 14:17 07/19/24 14:17 Orders (Tests/Meds): ED MEDICATIONS Discontinued Medications Generic Name Dose Route Start Last Admin Trade Name Reed PRN Reason Stop Dose Admin Diphenhydramine HCl 50 mg 07/19/24 13:52 07/19/24 14:23 Diphenhydramine 50mg/Ml Vial IV 07/19/24 13:53 50 mg ONCE ONE Administration Sodium Chloride 1,000 mls @ 999 mls/hr 07/19/24 13:52 07/19/24 14:23 Sod Chlor 0.9% 1000ml Bag IV 07/19/24 14:52 999 mls/hr .Q1H1M ONE Administration ORDERS Category Date Time Status CBC w/Auto Diff [Complete Blood Count Auto Diff] Stat Lab 07/19/24 14:17 Completed CMP [Comprehensive Metabolic Panel] Stat Lab 07/19/24 14:17 Completed Magnesium Stat Lab 07/19/24 14:17 Completed Thyroid Panel Stat Lab 07/19/24 14:17 Completed Trop I [Troponin I] Stat Lab 07/19/24 14:17 Completed Troponin I Q3H Lab 07/19/24 17:00 Ordered Troponin I Q3H Lab 07/19/24 20:00 Ordered UA [Urinalysis and Microscopic] Stat Lab 07/19/24 14:53 Completed UDS [Drug Screen,Urine] Stat Lab 07/19/24 14:53 Completed Medical Decision Narrative: In summary patient is a 24-year-old male who presents to the emergency department for evaluation of self-reported panic attack. Patient is initially hypertensive with a blood pressure 162/101 tachycardic at 116 with sinus tachycardia on the bedside monitor breathing 18 times a minute satting at 100% on room air upon arrival, afebrile. Physical exam reveals a well-nourished well-developed 24-year-old male who appears to be very anxious. He has shaking and fidgeting. [place] Coma Score 15 patient is awake alert and oriented to person place and circumstance. Patient has rapid heart rate on auscultation but no murmurs gallops rubs or thrills. Normal breath sounds without adventitious sounds. Differential diagnosis includes arrhythmia versus endocrine disorder versus panic or anxiety disorder etc. Initial workup will be conducted with hematologic labs twelve-lead EKG urinalysis urine drug screen. Initial interventions include Benadryl IV initially. Initial workup reviewed by me and his hematologic labs are nonactionable with the exception of his TSH which is slightly low but a normal T4. Upon repeat evaluation patient had complete resolution of his symptoms after initial intervention. Given this I had interactive discussion with the patient regarding his CORDOVA findings and via patient directed decision making and discharge patient is comfortable for discharge with referral to a primary care and to behavioral health for ongoing management and care. <Deana Ramos, DO - Last Filed: 07/19/24 16:23> Vital Signs: 07/19/24 13:04 07/19/24 14:30 07/19/24 15:54 Temperature 98.4 F Temperature Source Oral Pulse Rate 89 Pulse Rate [Left Radial] 116 H Respiratory Rate 18 Blood Pressure 124/84 Blood Pressure [Right Arm] 162/101 H Blood Pressure Mean [Right Arm] 121 02 Sat by Pulse Oximetry 100 97 Oxygen Delivery Method Room Air 07/19/24 16:00 Temperature Temperature Source Pulse Rate 80 Pulse Rate [Left Radial] Respiratory Rate 16 Blood Pressure 124/84 Blood Pressure [Right Arm] Blood Pressure Mean [Right Arm] 02 Sat by Pulse Oximetry 98 Oxygen Delivery Method Room Air Lab Data Lab Results 07/19/24 14:17: WBC 6.6, RBC 5.65, Hgb 16.5, Hct 47.8, MCV 84.6, MCH 29.2, MCHC 34.5, RDW 12.5, Plt Count 258, MPV 9.7, Neut % (Auto) 64.7, Lymph % (Auto) 26.5, [place] % (Auto) 6.7, Eos % (Auto) 1.1, Baso % (Auto) 0.8, Neut # (Auto) 4.3, Lymph # (Auto) 1.8, Winston # (Auto) 0.4, Eos # (Auto) 0.1, Baso # (Auto) 0.1, Sodium 140, Potassium 3.8, Chloride 106, Carbon Dioxide 26, Anion Gap 11.8, BUN 12, Creatinine 1.00, Estimated Creat Clear 151, Estimated GFR 93, Est GFR ( Amer) 112, Glucose 115 H, Calcium 10.0, Magnesium 1.8, Total Bilirubin 0.5, AST 77 H, ALT 60, Alkaline Phosphatase 69, Troponin I < 0.01, Total Protein 7.5, Albumin 4.8, Globulin 2.7, Albumin/Globulin Ratio 1.8, TSH 0.46 L, Free T4 Index 3.2 L, Thyroxine (T4) 9.2, T3 Uptake 35 07/19/24 14:53: Urine Color Yellow, Urine Appearance Clear, Urine pH 5.5, Ur Specific [place] 1.010, Urine Protein Negative, Urine Glucose (UA) Negative, Urine Ketones Negative, Urine Blood Negative, Urine Nitrate Negative, Urine Bilirubin Negative, Urine Urobilinogen 0.2, Ur Leukocyte Esterase Negative, Urine RBC None, Urine WBC None, Ur Squamous Epith Cells None, Urine Bacteria None, Urine Opiates Screen Negative, Urine Methadone Screen Negative, Ur Barbituates Screen Negative, Ur Phencyclidine Scrn Negative, Ur Amphetamines Screen Negative, U Benzodiazepines Scrn Negative, Urine Cocaine Screen Negative, U Marijuana (THC) Screen Negative Orders (Tests/Meds): ED MEDICATIONS Discontinued Medications Generic Name Dose Route Start Last Admin Trade Name Freq PRN Reason Stop Dose Admin Diphenhydramine HCl 50 mg 07/19/24 13:52 07/19/24 14:23 Diphenhydramine 50mg/Ml Vial IV 07/19/24 13:53 50 mg ONCE ONE Administration Sodium Chloride 1,000 mls @ 999 mls/hr 07/19/24 13:52 07/19/24 14:23 Sod Chlor 0.9% 1000ml Bag IV 07/19/24 14:52 999 mls/hr .Q1H1M ONE Administration ORDERS Category Date Time Status CBC w/Auto Diff [Complete Blood Count Auto Diff] Stat Lab 07/19/24 14:17 Completed CMP [Comprehensive Metabolic Panel] Stat Lab 07/19/24 14:17 Completed Magnesium Stat Lab 07/19/24 14:17 Completed Thyroid Panel Stat Lab 07/19/24 14:17 Completed Trop I [Troponin I] Stat Lab 07/19/24 14:17 Completed Troponin I Q3H Lab 07/19/24 17:00 Ordered Troponin I Q3H Lab 07/19/24 20:00 Ordered UA [Urinalysis and Microscopic] Stat Lab 07/19/24 14:53 Completed UDS [Drug Screen,Urine] Stat Lab 07/19/24 14:53 Completed ECG Data Tracing #1: I reviewed this ECG and interpreted as documented below: Normal sinus rhythm with sinus rhythm with a ventricular rate of [address] changes concerning for ischemia. Normal axis and intervals ECG initial impression date: 07/19/24 ECG initial impression time: 14:11 Medical Decision Narrative: In summary patient is a 24-year-old male who presents to the emergency department for evaluation of self-reported panic attack. Patient is initially hypertensive with a blood pressure 162/101 tachycardic at 116 with sinus tachycardia on the bedside monitor breathing 18 times a minute satting at 100% on room air upon arrival, afebrile. Physical exam reveals a well-nourished well-developed 24-year-old male who appears to be very anxious. He has shaking and fidgeting. [place] Coma Score 15 patient is awake alert and oriented to person place and circumstance. Patient has rapid heart rate on auscultation but no murmurs gallops rubs or thrills. Normal breath sounds without adventitious sounds. Differential diagnosis includes arrhythmia versus endocrine disorder versus panic or anxiety disorder etc. Initial workup will be conducted with hematologic labs twelve-lead EKG urinalysis urine drug screen. Initial interventions include Benadryl IV initially. Initial workup reviewed by me and his hematologic labs are nonactionable with the exception of his TSH which is slightly low but a normal T4. Upon repeat evaluation patient had complete resolution of his symptoms after initial intervention. Given this I had interactive discussion with the patient regarding his CORDOVA findings and via patient directed decision making and discharge patient is comfortable for discharge with referral to a primary care and to behavioral health for ongoing management and care. I was consulted by the HAL, and we discussed the complexity of the problems being addressed. I approved the treatment and management plan for this patient's care in the emergency department, thus performing a substantive portion of the medical decision making. Deana Ramos, Critical Care <RAMSES Carballo - Last Filed: 07/19/24 16:00> Critical Care Time Critical Care Time: No
--- NOTE | 2024-07-19 14:10 | ECG_ITS ---
APPROVED REPORT Exam: Resting ECG HR:79 bpm ECG Measurements Heart Rate 79 AXES HI 142 P 35 QRSd 101 QRS 66 QT 350 T 6 QTc 385 Conclusion SINUS RHYTHM WITH SINUS ARRHYTHMIA NORMAL ECG Electronically signed by : BRYCE PALUMBO, 07/19/2024 17:07:46
[2024-07-19] MEDS: 0.9 % SODIUM CHLORIDE 1000ML 1,000 ML 999 ML IV (14:23)
[2024-07-19] MEDS: diphenhydrAMINE 50MG/ML VIAL 50 MG IV (14:23)
[2024-07-19 14:26] LABS: Basophils # 0.1 K/mm3 (0-0.2); Basophils % 0.8 % (0.1-2.0); Eosinophils # 0.1 K/mm3 (0.0-0.4); Hemoglobin 16.5 g/dL (14.1-18.0); Monocytes # 0.4 K/mm3 (0.1-1.0)
[2024-07-19 14:30] VITALS: TEMP 36.9
[2024-07-19 14:32] LABS: Eosinophils % 1.1 % (0.1-12.0); Hematocrit 47.8 % (42.0-52.0); Lymphocytes # 1.8 K/mm3 (0.7-4.5); Lymphocytes % 26.5 % (10-50); Mean Corpuscular HGB Conc 34.5 g/dL (31.8-35.4); Mean Corpuscular Hemoglobin 29.2 pg (27.0-31.2); Mean Corpuscular Volume 84.6 fl (80-94); Mean Platelet Volume 9.7 fl (7.4-10.4); Monocytes % 6.7 % (1.7-9.3); Neutrophils # 4.3 K/mm3 (1.8-7.8); Neutrophils % 64.7 % (37.0-80.0); Platelet Count 258 K/mm3 (142-424); Red Blood Count 5.65 M/mm3 (4.60-6.20); Red Cell Distribution Width 12.5 % (11.5-17.5); White Blood Count 6.6 K/mm3 (4.8-10.8)
[2024-07-19 14:44] LABS: Alanine Aminotransferase 60 U/L (12-78); Albumin Level 4.8 g/dl (3.5-5.0); Albumin/Globulin Ratio 1.8 (1.1-1.8); Alkaline Phosphatase 69 U/L (38-126); Anion Gap 11.8 mEq/L (5-15); Aspartate Amino Transferase 77 U/L (17-59); Bilirubin,Total 0.5 mg/dl (0.2-1.3); Blood Urea Nitrogen 12 mg/dl (9-20); Carbon Dioxide 26 mmol/L (22.0-30.0); Chloride 106 mmol/L (98-107); Creatinine Clearance Estimated 151 mL/min (50-200); Estimated Glomerular Filt Rate 93 ml/min (>60); GFR (African American) 112 ML/MIN (>60); Globulin 2.7 g/dL (1.3-3.2); Glucose 115 mg/dl (74-100); Potassium 3.8 mmoL/L (3.5-5.1); Sodium 140 mmol/L (136-145); Total Protein,Serum 7.5 g/dl (6.3-8.2)
[2024-07-19 14:57] LABS: Troponin I < 0.01 ng/ml (0.00-0.034)
[2024-07-19 15:01] LABS: Microscopic, Urine URINE MICROSCOPIC (MICROSCOPIC)
--- NOTE | 2024-07-19 15:02 | PC.NURSE ---
collected urine sent to lab.
[2024-07-19 15:08] LABS: Appearance,Urine CLEAR (Clear); Bilirubin,Urine Negative (Negative); Blood, Urine Negative (Negative); Color,Urine YELLOW (Yellow); Glucose,Urine (UA) Negative (Negative); Ketones,Urine Negative (Negative); Leukocyte Esterase,Urine Negative (Negative); Nitrate,Urine Negative (Negative); PH,Urine 5.5 (5.0-8.5); Protein,Urine Negative (Negative); Urobilinogen,Urine 0.2 EU/dl (0.2)
[2024-07-19 15:14] LABS: Triiodothryronine (T3) Uptake 35 % (23.5-40.5)
[2024-07-19 15:15] LABS: Free Thyroxine Index 3.2 ug/dL (5.93-13.13); T4 (Thyroxine) 9.2 ug/dl (5.53-11.0)
[2024-07-19 15:23] LABS: Magnesium 1.8 mg/dl (1.6-2.3)
[2024-07-19 15:29] LABS: Thyroid Stimulating Hormone 0.46 uIU/mL (0.465-4.68)
[2024-07-19 15:42] LABS: Barbiturates Screen,Urine Negative ng/ml (<200)
[2024-07-19 15:43] LABS: Amphetamine/Metha Screen,Urine Negative ng/ml (<1000); Benzodiazepines Screen,Urine Negative ng/ml (<200)
[2024-07-19 15:45] LABS: Cocaine Screen,Urine Negative ng/ml (<300)
[2024-07-19 15:46] LABS: Opiate Screen,Urine Negative ng/ml (<300); Phencyclidine Screen,Urine Negative ng/ml (<25)
[2024-07-19 15:53] LABS: Cannabinoid Screen,Urine Negative ng/ml (<50)
[2024-07-19 15:54] VITALS: BP 124/84; PULSE 89; O2SAT 97
[2024-07-19 15:54] LABS: Methadone Screen,Urine Negative ng/ml (<300)
[2024-07-19 16:00] VITALS: BP 124/84; PULSE 80; RESP 16; O2SAT 98
[2024-07-19 16:15] VITALS: BP 120/80; PULSE 82; RESP 16; TEMP 36.9; O2SAT 98
== END 2024-07-19 16:27 | disposition home or self-care (01) ==
PROVIDERS: Physician Assistant; Emergency Provider Emergency Medicine; PCP Internal Medicine
DX: F41.1 Generalized anxiety disorder (principal); R00.2 Palpitations; R06.02 Shortness of breath
CPT/HCPCS: 80053; 80307; 81001; 83735; 84436; 84443; 84479; 84484; 85025; 93005; 96361; 96374; 99283; J1200; J7030

== ENCOUNTER 2025-01-11 14:09 | Outpatient (CLI) | payer MEDICAID, SELFPAY ==
[2025-01-11 15:09] LABS: Coronavirus 19, PCR Not Detected (NotDetected); Influenza A, PCR Not Detected (NotDetected); Influenza B, PCR Not Detected (NotDetected)
--- OUTSIDE RECORDS SUMMARY | 2025-01-12 11:57 | XMS_ITS | Clinical Summary ---
Author Organization [facility] Address [address] [place] [address] Care Team Providers Care Hide Handler Name Role Phone Cullen Bravo MD Primary Care Provider [phone] Allergies Active Allergy Reactions Criticality Noted Date Comments Ceftibuten Provider Review Needed 05/31/2022 Azithromycin Provider Review Needed 05/31/2022 Medications fluticasone (FLONASE) 50 MCG/ACT nasal spray Daily. 03/30/2024 Active hydrOXYzine (ATARAX) 25 MG tabletIndication s:ALEXANDRU (generalized anxiety disorder) Take 1 tablet by mouth Every 6 (Six) Hours As Needed for Anxiety. 30 tablet 07/26/2024 Active Active Problems Problem Noted Date Diagnosed Date ALEXANDRU (generalized anxiety disorder) 07/26/2024 Assessment & Plan (07/26/2024 12:23 PM EST): Seen in the emergency room 1 week ago at [facility] for an anxiety/panic attack x 3 separate episodes over a brief period of time, treated with IV Benadryl with resolution. He admits on a daily basis for the last 1 to 2 years he does have a mild level of anxiousness and irritability, and we did discuss suppressive therapy with an SSRI, but he prefers at this time to hold off on preventive medication, preferring to pursue counseling initially, and also prescribed hydroxyzine to use as needed any anxiety flare. Assess clinical response to counseling make further recommendation subsequently. Abnormal thyroid function test 07/26/2024 Assessment & Plan (07/26/2024 12:22 PM EST): Patient seen in the emergency room recently with anxiety/panic attack, with screening labs revealing mildly depressed TSH with normal total T4 and T3 uptake. Plan check TSH, free T4 and total T3 level, making further recommendation once lab testing finalized Moderate obesity 07/26/2024 Assessment & Plan (07/26/2024 12:22 PM EST): Patient reports over the last several months having lost 20 pounds in weight by intent. We discussed need to continue efforts at weight loss with lifestyle including regular exercise and healthy diet. Reassess at follow-up visit. COVID-19 virus infection 05/31/2022 Assessment & Plan (05/31/2022 11:23 AM EST): COVID-19 positive, please refer to assessment plan for viral syndrome for details. Viral syndrome 05/31/2022 Assessment & Plan (05/31/2022 11:23 AM EST): COVID-19 positive, flu screen negative. Consistent with COVID-19 illness which is common in the community at this time. No lower respiratory signs or symptoms concern. Good hydration. Second day of illness, appropriate quarantine notes provided. Push fluids, Tylenol/Advil for the next couple days. I provided Bromfed-DM for cough and congestion. Advise if not improving. Immunizations Immunization Administration Dates Next Due DTaP 04/08/2005, 3,2001,08/10,2001 DTaP, Unspecified 04/08/2005, 3,2001,08/10,2001 Fluzone (or Fluarix & Flulav al for VFC) >6mos 03/21/2022,08/29/2015 Hep A, 2 Dose 06/24/2019,02/26/2018 Hep B / HiB 04/07/2002,2001 Hep B, Adolescent or Pediatric 2001 Hepatitis B 2001 Hepatitis B Adult/Adolescent IM 04/07/2002,06/08,2001 HiB 07/13/2002, 2,2001,06/08 Hib (PRP-OMP) 2001 IPV 04/08/2005, 2,2001,06/08 Influenza Injectable Mdck Pf Quad 03/12/2023 Influenza Seasonal Injectable 04/26/2010, 008 Influenza, Unspecified 05/14/2024,2021,08/29/2015,07/07,04/26/2010,05/02/2008 MCV4 Unspecified 01/01/2013 MMR 04/08/2005,07/13/2002 Meningococcal Conjugate 12/22/2012 Meningococcal MCV4P (Menactra) 02/26/2018,2012 PEDS-Pneumococcal Conjugate (PCV7) 04/07,01/12/2002,2001,08/10 Pneumococcal, Unspecified 04/07/2002,,2001,08/10 Tdap 03/12/2023,12/22/2012 Varicella 12/23/2006,04/07/2002 Social History Tobacco Use Types Packs/Day Years Used Date Smoking Tobacco: Never Smokeless Tobacco: Never Tobacco Cessation:Counseling Given: Not Answered Alcohol Use Standard Drinks/Week Comments Never 0 (1 standard drink = 0.6 oz pur e alcohol) PHQ-2 Answer Date Recorded Retired PHQ-9: Brief Depression Severity Measure Score 0 05/31/2022 PHQ-2 Answer Date Recorded Patient Health Questionnaire-2 Score 0 07/26/2024 Sex and Gender Information Value Date Recorded Sex Assigned at Not on file Legal Sex Male 5:35 PM EDT Gender Identity Not on file Sexual Orientation Not on file Last Filed Vital Signs Vital Sign Reading Time Taken Comments Blood Pressure 126/84 07/26/2024 11:33 AM EST Pulse 112 07/26/2024 11:33 AM EST Temperature 36.8 C (98.2 F) 07/26/2024 11:33 AM EST Respiratory Rate - - Oxygen Saturation 98% 07/26/2024 11:33 AM EST Inhaled Oxygen Concentration - - Weight 95.9 kg (211 lb 6.4 oz) 07/26/2024 11:33 AM EST Height 165.1 cm (5' 5 ) 07/26/2024 11:33 AM EST Body Mass Index 35.18 07/26/2024 11:33 AM EST Plan of Treatment Health Maintenance Due Date Last Done Comments MENINGOCOCCAL B VACCINE (1 of 2 - Standard) 2017 ANNUAL PHYSICAL 05/31/2022 HEPATITIS C SCREENING 05/31/2022 COVID-19 Vaccine (3 - 2023- season) 2024 01/31/2022, 01/10/2022 INFLUENZA VACCINE 03/23/2025 05/14/2024, , 03/21/2022, Additional history exists TDAP/TD VACCINES (3 - Td or Tdap) 03/12/2033 03/12/2023, 12/22/2012 Pneumococcal Vaccine 0-49 Aged Out 2001, 04/07/2002, 01/12/2002, Additional history exists No longer eligible based on patient's age to complete this topic Insurance [facility] MEDICAID Care Teams Hide Handler Relationship Specialty Start Date End Date Cullen Bravo MD [address] [place], [place] [address] PCP - General Internal Medicine 06/25/22
== END 2025-01-11 23:59 | disposition home or self-care (01) ==
LOC: LAB.DROPOF 01-12 11:56
PROVIDERS: PCP Student in an Organized Health Care Education/Training Program; Visit Provider Student in an Organized Health Care Education/Training Program
DX: B34.9 Viral infection, unspecified (principal); J02.9 Acute pharyngitis, unspecified
CPT/HCPCS: 87631